=== PATIENT | female | born 1955 | race Caucasian/White ===

== ENCOUNTER 2019-03-20 01:16 | Outpatient (CLI) | payer OTHER, SELFPAY ==
[2019-03-20 08:30] LABS: Anion Gap 8.3 mmol/L (3-11); BUN 11 mg/dL (7-18); CO2 30.7 mmol/L (21.0-32.0); CREATININE 0.72 mg/dL (0.55-1.02); Calcium 9.4 mg/dL (8.5-10.1); Calculated LDL 84; Chloride 105 mmol/L (98-107); Cholesterol 172 mg/dL (50-200); Glucose 80 mg/dL (70-100); HDL Cholesterol 80 mg/dL (40-60); Potassium 4.5 mmol/L (3.5-5.1); Sodium 144 mmol/L (136-145); Triglyceride 43 mg/dL (30-150)
== END 2019-03-20 01:36 ==
PROVIDERS: Nurse Practitioner Family; PCP Nurse Practitioner Adult Health; Visit Provider Nurse Practitioner Adult Health
DX: E78.5 Hyperlipidemia, unspecified (principal); I10 Essential (primary) hypertension
CPT/HCPCS: 36415; 80048; 80061; 83721

== ENCOUNTER 2019-04-11 00:19 | Outpatient (CLI) | payer OTHER, SELFPAY ==
--- NOTE | 2019-04-11 12:00 | DI.MAMMO_ITS ---
SYMPTOM/DIAGNOSIS: SCREENING, Z12.31 MAMMOGRAMS: Mammograms were interpreted according to the usual protocol including computer analysis with CAD system, tomosynthesis and C view imaging. The breast tissue is of moderate radiodensity. There is no evidence of a mass. There are no suspicious calcifications and there has been no significant interval change when compared with prior images. SUMMARY: No evidence of malignancy, category 1. Yearly screening mammography is recommended. Breast density, Category B. SA ASSESSMENT OF FINDINGS: Negative. Category 1. Patient will receive a letter notifying them of these results. BI-RADS category B. There are scattered areas of fibroglandular density.
== END 2019-04-11 00:39 ==
PROVIDERS: PCP Nurse Practitioner Adult Health; Visit Provider Nurse Practitioner Adult Health
DX: Z12.31 Encounter for screening mammogram for malignant neoplasm of breast (principal)
CPT/HCPCS: 77063; 77067

== ENCOUNTER 2020-03-27 01:06 | Outpatient (CLI) | payer BC, SELFPAY ==
[2020-03-27 08:06] LABS: ALT 30 U/L (14-59); AST 23 U/L (15-37); Albumin 4.2 g/dL (3.4-5.0); Alkaline Phosphatase 97 U/L (46-116); Anion Gap 9.5 mmol/L (3-11); BUN 17 mg/dL (7-18); Bilirubin, Total 0.8 mg/dL (0.2-1.0); CO2 28.5 mmol/L (21.0-32.0); CREATININE 0.76 mg/dL (0.55-1.02); Calcium 9.6 mg/dL (8.5-10.1); Calculated LDL 96 mg/dL (<100); Chloride 101 mmol/L (98-107); Cholesterol 184 mg/dL (<200); Glucose 81 mg/dL (74-106); HDL Cholesterol 75 mg/dL (40-60); Potassium 4.2 mmol/L (3.5-5.1); Sodium 139 mmol/L (136-145); Triglyceride 69 mg/dL (<150)
== END 2020-03-27 01:26 ==
PROVIDERS: PCP Nurse Practitioner Adult Health; Visit Provider Nurse Practitioner Adult Health
DX: I10 Essential (primary) hypertension (principal); E78.5 Hyperlipidemia, unspecified
CPT/HCPCS: 36415; 80053; 80061

== ENCOUNTER 2020-04-17 03:39 | Outpatient (CLI) | payer BC, SELFPAY ==
--- NOTE | 2020-04-17 08:49 | DI.MAMMO_ITS ---
EXAM: MAMMO SCREENING CLINICAL HISTORY: screening,Z12.39 TECHNIQUE: Mammograms were interpreted according to the usual protocol including computer analysis w ith CAD system, tomosynthesis and C-view imaging. COMPARISON: 2010 through 2018 FINDINGS: The breasts are composed of scattered fibroglandular densities, Breast Density category B. No suspicious masses or suspicious microcalcifications are seen. No skin thickening or abnormal axillary lymph nodes are seen. There has been no significant change from prior exams. IMPRESSION: BI-RADS Category 1, negative mammogram. Yearly screening mammography is recommended. Breast Density Category B, scattered fibroglandular densities.
== END 2020-04-17 03:59 ==
PROVIDERS: PCP Nurse Practitioner Adult Health; Visit Provider Nurse Practitioner Adult Health
DX: Z12.31 Encounter for screening mammogram for malignant neoplasm of breast (principal)
CPT/HCPCS: 77063; 77067

== ENCOUNTER 2020-05-25 15:45 | Outpatient (CLI) | payer BC, SELFPAY ==
--- NOTE | 2020-05-25 14:15 | DI.RAD_ITS ---
EXAM: XR KNEE RT 4V AP,LAT,SAMIRA,PAT CLINICAL HISTORY: right knee pain. TECHNIQUE: 2D digital imaging was performed. COMPARISON: No exams were available for comparison FINDINGS: There are marked degenerative changes of the right knee. Findings are characterized by joint space n arrowing subchondral sclerosis and periarticular spurring. The findings are most marked in the media l femoral tibial joint and the patellofemoral joint. The tibia is laterally subluxed relative to the distal femur. No acute fracture or dislocation is seen. The soft tissues are unremarkable. IMPRESSION: Marked osteoarthritis of the right knee. DATA REPOSITORY: RADIATION DOSE DELIVERED:
== END 2020-05-25 16:05 ==
PROVIDERS: PCP Nurse Practitioner Adult Health; Referring Provider Nurse Practitioner Adult Health; Visit Provider Physician Assistant
DX: M17.11 Unilateral primary osteoarthritis, right knee (principal)
CPT/HCPCS: 73564

== ENCOUNTER 2021-03-22 14:21 | Outpatient (CLI) | payer BC, SELFPAY ==
--- NOTE | 2021-03-22 14:00 | DI.RAD_ITS ---
Exam(s) XR STANDING ALIGNMENT EXAM: XR STANDING ALIGNMENT CLINICAL HISTORY: TKA planning. TECHNIQUE: 2D digital imaging was performed. COMPARISON: CR XR KNEE RT 4V AP,LAT,SAMIRA,PAT from 05/25/2020 CR XR KNEE RT 4V AP,LAT,SAMIRA,PAT from 05/25/2020 FINDINGS: At the level the knees there is bilateral varus deformity due to advanced narrowing of the medial com partments both knees. [id number]. Lateral compartments exhibit normal height. Hips exhibit only mild degenerative changes. Sacroiliac joints appear unremarkable ankles unremarkable. No osseous le sions. IMPRESSION: DATA REPOSITORY: RADIATION DOSE DELIVERED:
--- NOTE | 2021-03-22 14:32 | DI.RAD_ITS ---
Exam(s) XR KNEE RT 1V EXAM: XR KNEE RT 1V CLINICAL HISTORY: TKA planning. TECHNIQUE: 2D digital imaging was performed. COMPARISON: CR XR KNEE RT 4V AP,LAT,SAMIRA,PAT from 05/25/2020 FINDINGS: Single lateral view reveals advanced osteoarthritic degenerative changes, as previously documented. There also appears to be a joint effusion in the suprapatellar bursa. IMPRESSION: DATA REPOSITORY: RADIATION DOSE DELIVERED:
== END 2021-03-22 14:22 | disposition home or self-care (01) ==
LOC: DIORS 14:22
PROVIDERS: PCP Nurse Practitioner Adult Health; Referring Provider Nurse Practitioner Adult Health; Visit Provider Physician Assistant
DX: Z01.818 Encounter for other preprocedural examination (principal); M17.11 Unilateral primary osteoarthritis, right knee
CPT/HCPCS: 73560; 77073

== ENCOUNTER 2021-04-19 00:52 | Outpatient (CLI) | payer BC, MEDICAID, SELFPAY ==
--- NOTE | 2021-04-19 13:19 | DI.MAMMO_ITS ---
Exam(s) MAMMO SCREENING EXAM: MAMMO SCREENING CLINICAL HISTORY: screening,Z12.39. TECHNIQUE: Bilateral full field digital CC and MLO mammographic images were obtained with 3D tomosyn thesis and utilizing computer aided detection (CAD). COMPARISON: Prior mammograms dating back to 2011, the most recent being March 2020. FINDINGS: There are no new spiculated masses nor malignant appearing microcalcification groups. There is no significant architectural distortion nor skin thickening-retraction. IMPRESSION: No radiographic evidence of malignancy. BI-RADS Category 1 - Negative Breast Density - Category B - Scattered areas of fibroglandular density Breast density Category C or D implies that the patient has dense breast tissue. Dense breast tissue can make it harder to find cancer on a mammogram. Dense breast tissue is also associated with an incr eased risk of breast cancer. This information about the result of the mammogram report was provided to the patient to raise their awareness. Use this report when you speak with the patient about their risks for breast cancer, which includes their family history. At that time, you may recommend additional screening tests (Ultrasoun d or MRI) as these tests may add significant information. A negative radiographic report should not delay biopsy if a dominant or clinically suspicious mass is present. Up to ten percent of cancers are not identified on mammography. A negative report may reinforce clinical impression. Adenosis and dense breasts may obscure an underlying neoplasm. False positive reports average 6 to 10%. Patient will receive a letter notifying them of these results.
== END 2021-04-19 01:12 ==
PROVIDERS: PCP Nurse Practitioner Adult Health; Visit Provider Nurse Practitioner Adult Health
DX: Z12.31 Encounter for screening mammogram for malignant neoplasm of breast (principal); R92.8 Other abnormal and inconclusive findings on diagnostic imaging of breast
CPT/HCPCS: 77063; 77067

== ENCOUNTER 2021-05-03 03:39 | Outpatient (CLI) | payer BC, SELFPAY ==
[2021-05-03 10:26] LABS: HCT 43.5 % (36.0-46.0); HGB 14.4 g/dL (11.2-15.7); MCH 31.9 pg (27.0-33.0); MCHC 33.1 % (32.0-36.0); MCV 96.5 fL (80-95); MPV 8.8 fL (8.0-11.0); Platelet Count 343 10^3/uL (130-400); RBC 4.51 10^6/uL (3.93-5.22); RDW 11.9 % (11.7-14.6); RDW-SD 42.3 fL; WBC 6.09 10^3/uL (4.4-10.8)
[2021-05-03 11:37] LABS: Anion Gap 9.6 mmol/L (3-11); BUN 11 mg/dL (7-18); CO2 27.4 mmol/L (21.0-32.0); CREATININE 0.9 mg/dL (0.55-1.02); Calcium 10.1 mg/dL (8.5-10.1); Chloride 105 mmol/L (98-107); Glucose 88 mg/dL (74-106); Potassium 4.5 mmol/L (3.5-5.1); Sodium 142 mmol/L (136-145)
[2021-05-03 12:48] LABS: Source Nasal/Nares
[2021-05-03 16:48] LABS: COVID-19 PCR Negative (Negative)
== END 2021-05-03 03:40 | disposition home or self-care (01) ==
LOC: LBO 03:39
PROVIDERS: PCP Nurse Practitioner Adult Health; Visit Provider Student in an Organized Health Care Education/Training Program
DX: M25.561 Pain in right knee (principal); M17.11 Unilateral primary osteoarthritis, right knee; Z20.822 Contact with and (suspected) exposure to COVID-19; Z01.818 Encounter for other preprocedural examination; Z01.812 Encounter for preprocedural laboratory examination
CPT/HCPCS: 36415; 80048; 85027; 87635

== ENCOUNTER 2021-05-04 06:08 | Day surgery (SDC) | payer BC, SELFPAY ==
[2021-05-04] VITALS (9 sets, daily range): BP systolic 90–155; BP diastolic 58–79; PULSE 58–80; RESP 12–16; TEMP 36–36.4; O2SAT 92–100; BMI 33.4
[2021-05-04] MEDS: Gabapentin 300 MG CAP PO (06:49)
[2021-05-04] MEDS: Celecoxib 200 MG CAP 400 MG PO (06:49)
[2021-05-04] MEDS: Acetaminophen 500 MG TAB 1000 MG PO (06:49)
[2021-05-04] MEDS: Lactated Ringers 1,000 ML 80 ML IV (06:49)
--- NOTE | 2021-05-04 06:52 | ANES.PREOP_ITS ---
General Info Date of Service Date Performed: 05/04/21 Height: 5 ft Weight: 77.6 kg Body Mass Index (BMI): 33.4 Surgical Procedure: Operation Date: 05/04/21 08:25 Proposed Procedures Side Surgeon p Knee Total Arthroplasty Right Willis Martin MD Meds Allergies and Home Medications Allergies Allergy/AdvReac Type Severity Reaction Status Date / Time Tetracyclines Allergy Intermediate Skin Rash Verified 05/03/21 10:54 Home Medication Medication Instructions Recorded compr.stocking,knee,long,large #2 01/31/18 multivitamin [Multi-Vitamin Daily] 1 ea PO DAILY 03/19/18 glucosamine HCl 500 mg tablet 1,000 mg PO DAILY tab 03/22/21 ibuprofen 200 mg capsule 200 mg PO Q6H PRN 03/22/21 Current Visit Medications: Current Medications Generic Name Dose Route Start Last Admin Trade Name Freq PRN Reason Stop Dose Admin Acetaminophen 1,000 mg 05/04/21 06:00 05/04/21 06:49 Acetaminophen 500 Mg Tab PO 05/04/21 16:00 1,000 mg PREOP SILVINO Administration Celecoxib 400 mg 05/04/21 06:00 05/04/21 06:49 Celecoxib 200 Mg Cap PO 05/04/21 16:00 400 mg PREOP SILVINO Administration Gabapentin 300 mg 05/04/21 06:00 05/04/21 06:49 Gabapentin 300 Mg Cap PO 05/04/21 16:00 300 mg PREOP SILVINO Administration Tranexamic Acid 1,000 mg/ 60 mls @ 360 mls/hr 05/04/21 06:00 Sodium Chloride IVPB 05/04/21 16:00 PREOP SILVINO Tranexamic Acid 1,000 mg/ 60 mls @ 360 mls/hr 05/04/21 06:00 Sodium Chloride IVPB 05/04/21 16:00 DIRECTED SILVINO Ringer's Solution 1,000 mls @ 80 mls/hr 05/04/21 06:00 05/04/21 06:49 IV 06/02/21 23:59 80 mls/hr INFUSION SILVINO Administration Cefazolin Sodium/Dextrose 2 gm in 50 mls @ 100 mls/hr 05/04/21 06:00 Ancef Duplex IVPB 05/04/21 16:00 PREOP SILVINO IV Miscellaneous Supplies 1 each 05/04/21 06:00 Iv Access IV 06/02/21 23:59 DIRECTED SILVINO Sodium Chloride 0 ml 05/04/21 06:00 Normal Saline Flush 10 Ml Syr IV 06/02/21 23:59 PRN PRN Sodium Chloride 0 ml 05/04/21 06:00 Normal Saline 10 Ml Vial IJ 06/02/21 23:59 DIRECTED PRN Sterile Water 0 ml 05/04/21 06:00 Water,Injection,Sterile 10 Ml Vial IJ 06/02/21 23:59 DIRECTED PRN PFSH Active Problems Active Problems: Problem Status Onset Code Impaired gait and mobility R26.89 Degenerative joint disease of right knee M17.11 Body mass index (BMI) greater than 30 in adult Venous insufficiency of both lower extremities 04/20/15 I87.2 Hyperlipidemia 02/21/17 E78.5 Essential hypertension I10 Allergic rhinitis 03/02/15 J30.9 Medical History Medical History Allergic rhinitis (03/02/15) Constipation Had a colonoscopy for this Degenerative joint disease of right knee Severe Depo-Provera contraceptive status Long-term use in the past. Bone density scan normal. Essential hypertension TLCs controlled in the past At-home BP monitoring -03/2015 revealed BPs running in the 110-120s/70-80s whereas in the office it runs in the 130s systolic. Hyperlipidemia (02/21/17) Pt denies this being a diagnosis 02/2019 labwork: 10-year ASCVD risk ~2.9% --> no statin indicated at this time Hypertension Obesity, Class III, BMI 40-49.9 (morbid obesity) Postmenopausal Venous insufficiency Venous insufficiency of both lower extremities (04/20/15) Manifested by edema, treated with compression stockings Stopped wearing compression stockings due to sizing issues Surgical History Surgical History COLONOSCOPY (MAC) (05/25/15) Dr. Debbie Lemon Colonoscopy - MAC 1997- Dr. Morrison Tooth extraction Parker tooth extraction Tobacco Smoking/Tobacco Use Status: Never Passive smoking exposure: No Alcohol Alcohol Intake: never Substance Use Substance use: Never Substance use type: does not use Vital Signs and Lab Results Vital Signs Most Recent Vital Signs in EMR: Most Recent Vital Signs Temp Pulse Resp BP Pulse Ox 36.4 C L 80 16 155/78 H 99 05/04/21 06:25 05/04/21 06:25 05/04/21 06:25 05/04/21 06:25 05/04/21 06:25 Lab Results Blood Type / Crossmatch: 2 No Data to Display Complete Blood Count: White Blood Count 6.09 10^3/uL (4.4-10.8) 05/03/21 10:20 05/03/21 Red Blood Count 4.51 10^6/uL (3.93-5.22) 05/03/21 10:20 05/03/21 Hemoglobin 14.4 g/dL (11.2-15.7) 05/03/21 10:05/03/21 Hematocrit 43.5 % (36.0-46.0) 05/03/21 10:20 05/03/21 Platelet Count 343 10^3/uL (130-400) 05/03/21 10:20 05/03/21 Complete Metabolic Panel: Sodium Level 142 mmol/L (136-145) 05/03/21 10:20 05/03/21 Potassium Level 4.5 mmol/L (3.5-5.1) 05/03/21 10:05/03/21 Chloride Level 105 mmol/L (98-107) 05/03/21 10:05/03/21 Carbon Dioxide Level 27.4 mmol/L (21.0-32.0) 05/03/21 10:20 05/03/21 Blood Urea Nitrogen 11 mg/dL (7-18) 05/03/21 10:05/03/21 Creatinine 0.9 mg/dL (0.55-1.02) 05/03/21 10:05/03/21 Estimated GFR/1.73 m2 >= 60.00 (mL/min/1.73m2) 05/03/21 10:05/03/21 Calcium Level 10.1 mg/dL (8.5-10.1) 05/03/21 10:05/03/21 Glucose Level 88 mg/dL (74-106) 05/03/21 10:05/03/21 Liver Function Panel: No Data to Display Coagulation Panel: No Data to Display Cardiac Panel: No Data to Display Arterial Blood Gas: No Data to Display Venous Blood Gas: No Data to Display Pancreas Panel: No Data to Display Thyroid Panel: No Data to Display Infectious Disease: 2 Coronavirus (COVID-19)(PCR) Negative (Negative) 05/03/21 10:34 05/03/21 Coronavirus 2019 Source Nasal/Nares 05/03/21 10:34 05/03/21 Blood Cultures: No Data to Display Toxicology Panel: No Data to Display Anesthesia Assessment and Plan Anesthesia History Personal History: No History of Anesthesia Complications Family History: No Family History of Anesthesia Complications Exercise Tolerance Exercise Tolerance: Metabolic Equivalents>4 Pertinent Negatives Pertinent Negatives: No Symptoms of GERD, No Major Cardiovascular Symptoms or Complaints and No Major Pulmonary Symptoms or Complaints Cardiac & Pulmonary Exam Cardiac Exam: Normal S1/S2 Heart Sounds Pulmonary Exam: Clear Bilateral Breath Sounds Airway Exam Known Difficult Airway: No Mallampati Class: 2 Mouth Opening: Normal (> 3cm) Thyromental Distance: Greater than 3 cm Neck Range of Motion: Full ROM Neck Circumference: Normal Teeth Condition: Normal Dentition ASA Classification ASA Score: ASA 2 Emergency Case?: No NPO Status NPO Status: NPO Clears >2 hours, Solids >8 hours Anesthesia Plan Resuscitation Status: Full Code Anesthesia Technique: Spinal Anesthesia Airway Planned: Natural Airway Pain Management: Surgeon and patient request nerve block Monitors Used: Standard Monitors
--- NOTE | 2021-05-04 07:25 | DSE_ITS ---
Documented by User: Sammi Odellxon 05/04/21 07:28 DS: Diagnosis Discharge Diagnosis (1) Degenerative joint disease of right knee: Status: Chronic Discharge Plan Disposition Patient Disposition: HOME Condition: Good Discharge Details Reason For Visit: Right knee DJD Attending Provider: Willis Martin Primary Care Provider: Elle Peters Home Meds and New Rx's Prescriptions: New celecoxib [Celebrex] 200 mg capsule 200 mg PO BID Qty: 30 RF: 0 aspirin 81 mg tablet,delayed release (DR/EC) 81 mg PO BID 30 Days Qty: 60 RF: 0 acetaminophen 500 mg tablet 500 mg PO Q6H PRN (Reason: pain) Qty: 60 RF: 2 pantoprazole 40 mg tablet,delayed release (DR/EC) 40 mg PO DAILY Qty: 30 RF: 0 docusate sodium [Colace] 100 mg capsule 100 mg PO BID Qty: 30 RF: 0 gabapentin 300 mg capsule 300 mg PO QHS Qty: 14 RF: 0 oxycodone 5 mg tablet 5 mg PO Q4H PRN (Reason: severe post-operative pain) Qty: 18 RF: 0 Continued glucosamine HCl 500 mg tablet 1,000 mg PO DAILY RF: 0 (DME) compr.stocking,knee,long,large 1 EACH misc Miscellaneous DAILY Qty: 2 RF: 0 multivitamin [Daily Multi-Vitamin] 1 EACH tablet 1 ea PO DAILY RF: 0 Discontinued ibuprofen 200 mg capsule 200 mg PO Q6H PRNRF: 0 Discharge Instructions Additional Instructions: Total Knee Discharge Instructions Activity: The most important activity is to walk. You should try to take short walks a few times a day. It is important that when resting you work on keeping the knee straight. Avoid putting a pillow behind the knee as this will encourage flexion. Work on range of motion exercises as provided by Physical Therapy. - Start outpatient physical therapy within 2 weeks. - You should wear the CRISSY hose on both legs for 2 weeks. You may remove these at night. You may also use any compression sock in place of the CRISSY hose. Dressing: You may remove the Ze wrap on your leg 2 days after your surgery and put on the CRISSY stocking given to you from the hospital. Keep the surgical dressing (underneath the ZE wrap) in place for at least one week. After the first week it may be removed and replaced with light gauze and tape or nothing. The wound and dressing may get wet after 3 days but avoid soaking the dressing o r otherwise it will need to be changed. Many people prefer covering the dressing with cling wrap (saran wrap) to minimize it from getting soaked. If it gets wet, just pat dry. If it starts to peel off then it will need to be changed. Medications: - You should take Tylenol and anti-inflammatory Celebrex as your primary pain control medications. If the Celebrex is too expensive or not covered, please call the office for another alternative (Advil/Ibuprofen or Naproxen/Aleve) - You have been prescribed a stronger pain medication Oxycodone for breakthrough pain, take as needed as prescribed. - You have also been prescribed a stomach acid reduction agent Pantoprozole to help reduce stomach acid and reflux. - You have been prescribed Gabapentin to take at night for restlessness and nerve pain. - You will be taking Aspirin 81mg twice a day for DVT prevention unless instructed otherwise. - If you have constipation you should take Colace (which was prescribed) or Darron alax (which you may purchase [id number]). It takes most people 3-4 days to have a bowel movement. Follow-up: 2 weeks If you have any acute concerns or questions, please do not hesitate to contact the office at [phone]. You may contact Dr. Martin with any questions after hours through the hospital at [phone] or on his cell phone at [phone]. Stand Alone Forms: Anesthesia Discharge Inst. Referrals: Willis Martin MD [ [facility] STAFF PHYSICIAN] - Equipment/Supplies: Walker Activity:: Elevate Remove Dressings/Wound Care:: Do Not Remove Shower/Bathe:: Cover Diet:: As Tolerated Discharge Orders Discharge Orders: Discharge Order (Routine); Ordered 05/04/21 Ordered By: Willis Martin DS: Data Vitals/I&O Vitals and I&O: Vital Signs Temperature 36.4 C L 05/04/21 06:25 Pulse 80 05/04/21 06:25 Pulse Rhythm Regular 05/04/21 06:25 Respiratory Rate 16 05/04/21 06:25 Respiratory Depth Normal 05/04/21 06:25 Blood Pressure 155/78 H 05/04/21 06:25 Pulse Oximetry 99 05/04/21 06:25 Oxygen Delivery Method Room Air 05/04/21 06:25 Oxygen Flow Rate 0 05/04/21 06:25 Pain Level 0 05/04/21 06:25 Intake & Output 05/03/21 05/03/21 05/04/21 11:59 23:59 11:59 Weight 79.832 kg 77.6 kg [facility] Medical History Allergic rhinitis (03/02/15) Constipation Had a colonoscopy for this Degenerative joint disease of right knee Severe Depo-Provera contraceptive status Long-term use in the past. Bone density scan normal. Essential hypertension TLCs controlled in the past At-home BP monitoring -03/2015 revealed BPs running in the 110-120s/70-80s whereas in the office it runs in the 130s systolic. Hyperlipidemia (02/21/17) Pt denies this being a diagnosis 02/2019 labwork: 10-year ASCVD risk ~2.9% --> no statin indicated at this time Hypertension Obesity, Class III, BMI 40-49.9 (morbid obesity) Postmenopausal Venous insufficiency Venous insufficiency of both lower extremities (04/20/15) Manifested by edema, treated with compression stockings Stopped wearing compression stockings due to sizing issues Surgical History COLONOSCOPY (MAC) (05/25/15) Dr. Debbie Lemon Colonoscopy - MAC 1997- Dr. Morrison Tooth extraction [place] tooth extraction Family History Mother Dementia at 91 y/o Father Emphysema of lung at 61 y/o Social History Smoking/Tobacco Use Status: Never Smoking risk assessment performed?: Yes Alcohol Intake: never Drug use: Never Substance use type: does not use Caregiver/Support person: No Household members: spouse Housing: house Communication Needs: Corrective Lenses Do you need help understanding health information?: Never current occupation: Housekeeping Pets and animals: Yes Pets and animals: cat(s) Sexually active: Yes Do you think of yourself as: straight/heterosexual Current gender identity: female What is your relationship status?: How often do you talk on the phone with friends or family?: three or more times per week How often do you get together with friends or relatives?: three or more times per week How often do you attend methodist or baptism services?: 4 or more times per year Do you belong to any clubs or organized social groups?: no Panel score (0-1 are the most socially isolated patients): 3 What type of physical activity do you participate in: walking Duration: 45-60 minutes/day Frequency: 3-4 times per week Aishwarya/Yazidism: Gnosticist Special aishwarya needs: No Seatbelt use: always Helmet use: Yes Helmet use: sometimes Drive intox or ride w/intox class a regional drivers: No Water heater temp set <120 deg: Yes Do you feel safe at home: Yes Do you feel safe in your relationship?: Yes Documented by User: Willis Martin MD 05/04/21 14:05 Date of service: 05/04/21 Time of Service: 14:04 Discharge Plan Disposition Patient Disposition: HOME Condition: Good Discharge Details Reason For Visit: Right knee DJD Attending Provider: Willis Martin Primary Care Provider: Elle Peters Home Meds and New Rx's Prescriptions: New celecoxib [Celebrex] 200 mg capsule 200 mg PO BID Qty: 30 RF: 0 aspirin 81 mg tablet,delayed release (DR/EC) 81 mg PO BID 30 Days Qty: 60 RF: 0 acetaminophen 500 mg tablet 500 mg PO Q6H PRN (Reason: pain) Qty: 60 RF: 2 pantoprazole 40 mg tablet,delayed release (DR/EC) 40 mg PO DAILY Qty: 30 RF: 0 docusate sodium [Colace] 100 mg capsule 100 mg PO BID Qty: 30 RF: 0 gabapentin 300 mg capsule 300 mg PO QHS Qty: 14 RF: 0 oxycodone 5 mg tablet 5 mg PO Q4H PRN (Reason: severe post-operative pain) Qty: 18 RF: 0 Continued glucosamine HCl 500 mg tablet 1,000 mg PO DAILY RF: 0 (DME) compr.stocking,knee,long,large 1 EACH misc Miscellaneous DAILY Qty: 2 RF: 0 multivitamin [Daily Multi-Vitamin] 1 EACH tablet 1 ea PO DAILY RF: 0 Discontinued ibuprofen 200 mg capsule 200 mg PO Q6H PRNRF: 0 Discharge Instructions Additional Instructions: Total Knee Discharge Instructions Activity: The most important activity is to walk. You should try to take short walks a few times a day. It is important that when resting you work on keeping the knee straight. Avoid putting a pillow behind the knee as this will encourage flexion. Work on range of motion exercises as provided by Physical Therapy. - Start outpatient physical therapy within 2 weeks. - You should wear the CRISSY hose on both legs for 2 weeks. You may remove these at night. You may also use any compression sock in place of the CRISSY hose. Dressing: You may remove the Ze wrap on your leg 2 days after your surgery and put on the CRISSY stocking given to you from the hospital. Keep the surgical dressing (underneath the ZE wrap) in place for at least one week. After the first week it may be removed and replaced with light gauze and tape or nothing. The wound and dressing may get wet after 3 days but avoid soaking the dressing or otherwise it will need to be changed. Many people prefer covering the dressing with cling wrap (saran wrap) to minimize it from getting soaked. If it gets wet, just pat dry. If it starts to peel off then it will need to be changed. Medications: - You should take Tylenol and anti-inflammatory Celebrex as your primary pain control medications. If the Celebrex is too expensive or not covered, please call the office for another alternative (Advil/Ibuprofen or Naproxen/Aleve) - You have been prescribed a stronger pain medication Oxycodone for breakthrough pain, take as needed as prescribed. - You have also been prescribed a stomach acid reduction agent Pantoprozole to h elp reduce stomach acid and reflux. - You have been prescribed Gabapentin to take at night for restlessness and nerve pain. - You will be taking Aspirin 81mg twice a day for DVT prevention unless inst ructed otherwise. - If you have constipation you should take Colace (which was prescribed) or Miralax (which you may purchase [id number]). It takes most people 3-4 days to have a bowel movement. Follow-up: 2 weeks If you have any acute concerns or questions, please do not hesitate to contact the office at [phone]. You may contact Dr. Martin with any questions after hours through the hospital at [phone] or on his cell phone at [phone]. Stand Alone Forms: Anesthesia Discharge Inst. Referrals: Willis Martin MD [ [facility] STAFF PHYSICIAN] - Equipment/Supplies: Walker Activity:: Elevate Remove Dressings/Wound Care:: Do Not Remove Shower/Bathe:: Cover Diet:: As Tolerated Discharge Orders Discharge Orders: Discharge Order (Routine); Ordered 05/04/21 Ordered By: Willis Martin DS: Summary Time Spent with Patient providing and/or coordinating discharge services: Less than 30 minutes Status at Discharge Functional status at discharge: uses cane/walker Overall status at discharge: patient is progressing back to baseline Mental Status: mental status grossly normal Speech and Movement: speech and movement normal Mood: congruent mood Affect: normal affect Exam Psych Mental Status: mental status grossly normal Speech and Movement: speech and movement normal Mood: congruent mood Affect: normal affect [facility] Medical History Allergic rhinitis (03/02/15) Constipation Had a colonoscopy for this Degenerative joint disease of right knee Severe Depo-Provera contraceptive status Long-term use in the past. Bone density scan normal. Essential hypertension TLCs controlled in the past At-home BP monitoring -03/2015 revealed BPs running in the 110-120s/70-80s whereas in the office it runs in the 130s systolic. Hyperlipidemia (02/21/17) Pt denies this being a diagnosis 02/2019 labwork: 10-year ASCVD risk ~2.9% --> no statin indicated at this time Hypertension Obesity, Class III, BMI 40-49.9 (morbid obesity) Postmenopausal Venous insufficiency Venous insufficiency of both lower extremities (04/20/15) Manifested by edema, treated with compression stockings Stopped wearing compression stockings due to sizing issues Surgical History COLONOSCOPY (MAC) (05/25/15) Dr. Debbie Lemon Colonoscopy - MAC 1997- Dr. Morrison Tooth extraction [place] tooth extraction Family History Mother Dementia at 91 y/o Father Emphysema of lung at 61 y/o Social History Smoking/Tobacco Use Status: Never Smoking risk assessment performed?: Yes Alcohol Intake: never Drug use: Never Substance use type: does not use Caregiver/Support person: No Household members: spouse Housing: house Communication Needs: Corrective Lenses Do you need help understanding health information?: Never current occupation: Housekeeping Pets and animals: Yes Pets and animals: cat(s) Sexually active: Yes Do you think of yourself as: straight/heterosexual Current gender identity: female What is your relationship status?: How often do you talk on the phone with friends or family?: three or more times per week How often do you get together with friends or relatives?: three or more times per week How often do you attend methodist or baptism services?: 4 or more times per year Do you belong to any clubs or organized social groups?: no Panel score (0-1 are the most socially isolated patients): 3 What type of physical activity do you participate in: walking Duration: 45-60 minutes/day Frequency: 3-4 times per week Aishwarya/Yazidism: Gnosticist Special aishwarya needs: No Seatbelt use: always Helmet use: Yes Helmet use: sometimes Drive intox or ride w/intox class a regional drivers: No Water heater temp set <120 deg: Yes Do you feel safe at home: Yes Do you feel safe in your relationship?: Yes
--- NOTE | 2021-05-04 08:20 | W.ANESNERVE ---
Nerve Block Single Injection Procedure Date and Time Date Performed: 05/04/21 Procedure Start: 07:32 Location Where Procedure Performed Procedure Location: PACU Reason Performed: Postoperative Analgesia Requesting Provider: Willis Martin Timeout Performed Timeout Performed: Yes Monitoring Used ECG, Blood Pressure and SpO2 Sterility Sterility: Hand Hygiene, Surgical Cap, Surgical Mask, Sterile Gloves and Chlorhexidine Sedation Given During Procedure Sedation Given (Indicate Dose Given): Versed IV Dose:: 1mg and Other: Medication/Route/Dose:: N/A Patient Mental Status Patient Mental Status: Awake Nerve Block 1st Nerve Block: Laterality: Right Block Type: Adductor Canal Needle / Catheter Used: 100mm SonoPlex II Local Anesthetic Bolus (Indicate Dose Given): Lidocaine used for local infiltration of skin, Injected in 3-5ml increments after negative blood aspiration and Bupivacaine 0.25% Dose:: 20mL Additives (Indicate Dose Given): None Ultrasound: Sterile probe cover and gel used Ultrasound Image Saved?: Yes Nerve Stimulator: Not Used Paresthesia: None Procedure Tolerated: No Complications and Patient tolerated well Procedure Outcome: Successful Performed By: Elle Gomez Supervised By: Berto Bloom
[2021-05-04] MEDS: Bupivacaine 0.25% Pres-Free 30 ML VIAL (08:38)
[2021-05-04] MEDS: Normal Saline 20 ML VIAL (08:41)
[2021-05-04] MEDS: fentaNYL 100 MCG/2 ML VIAL IVP ×2 (10:26→10:42)
[2021-05-04] MEDS: Normal Saline Flush 10 ML SYR IV (10:27)
--- NOTE | 2021-05-04 10:43 | W.ANESPOSTOP ---
Postoperative Evaluation Date, Time and Location Date Performed: 05/04/21 Time Performed: 10:43 Patient Location: Day Surgery Unit Vital Signs Most Recent Imported Vital Signs: Most Recent Vital Signs Temp Pulse Resp BP Pulse Ox 36.3 C L 58 L 12 128/58 L 98 05/04/21 10:40 05/04/21 10:40 05/04/21 10:40 05/04/21 10:40 05/04/21 10:40 Pain Score Most Recent Pain Score: Most Recent Pain Score Pain Level 0 05/04/21 06:25 Assessment Mental Status: Awake (Alert & Oriented to Patient Baseline) Airway and Respiratory Function: Patent airway with normal (patient baseline) respiratory exam Cardiovascular Function: Hemodynamically Stable Hydration Status: Adequately Hydrated Nausea & Vomiting: No Nausea or Vomiting Pain: Pain is tolerable per patient Peripheral Nerve Block: Regional nerve block not resolved at time of post operative discharge
[2021-05-04] MEDS: oxyCODONE 5 MG TAB PO (11:19)
--- NOTE | 2021-05-04 12:28 | IN_ITS ---
Date of service: 05/04/21 Time of Service: 12:28 PT Notes Visit Reasons: Right knee DJD Physical Therapy Day Surgery Initial Evaluation Date: 05/04/2021 Referring Doctor: CHUN Bergeron PT Orders: PT CONSULT: Status post Ortho surgery Precautions: WBAT on right LE with AD. Patient Profile/Admitting Diagnosis: Alla is a 66-year-old female with direct degenerative joint disease of the right knee and is status post right total knee arthroplasty on postoperative day 0. PMHX: Medical History (Updated 04/27/21 @ 13:24 by Sammi Mckeon) Allergic rhinitis (03/02/15) Constipation Had a colonoscopy for this Degenerative joint disease of right knee Severe Depo-Provera contraceptive status Long-term use in the past. Bone density scan normal. Essential hypertension TLCs controlled in the past At-home BP monitoring -03/2015 revealed BPs running in the 110-120s/70-80s whereas in the office it runs in the 130s systolic. Hyperlipidemia (02/21/17) Pt denies this being a diagnosis 02/2019 labwork: 10-year ASCVD risk ~2.9% --> no statin indicated at this time Hypertension Obesity, Class III, BMI 40-49.9 (morbid obesity) Postmenopausal Venous insufficiency Venous insufficiency of both lower extremities (04/20/15) Manifested by edema, treated with compression stockings Stopped wearing compression stockings due to sizing issues Surgical History COLONOSCOPY (MAC) (05/25/15) Dr. Debbie Lemon Colonoscopy - MAC 1997- Dr. Morrison Tooth extraction [place] tooth extraction Social History/Home Situation: Lives with Kareem in a private home with 4 steps to enter with bilateral rails that are wide apart. 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 Equipment Owned/DME: [employer] Subjective: Complained of being very drowsy as she has not slept at all last night. Nurse Odom thinks that the pain medication she received earlier may be contributory. Patient was able to walk from bed to reclining chair about 15 steps but strongly requested to sit down/rest as she does not feel safe to continue due to fatigue and drowsiness. Nurse Odom rechecked patient's vital signs and blood sugar which were within normal limits. However patient was insistent about taking a short nap. Patient and nurse agreed to be seen about half an hour later to complete mobility assessment. Objective: General Observation: Significant drowsiness and fatigue observed. Hands clammy. YESSICA wraps to right LE. Cryocuff on right knee. Mental Status: Lethargic but is oriented x 4 Pain: 4-5/10 pain in the R knee with weight bearing ROM: Right Lower Extremity: Hip flexion WFL. Hip abduction WFL. Knee flexion 20? to 95?. Knee extension -20?. Ankle dorsiflexion WFL. Ankle plantarflexion WFL. Left Lower Extremity: Hip flexion WFL. Hip abduction WFL. Knee flexion WFL. Ankle dorsiflexion WFL. Ankle plantarflexion WFL. Strength: Right Lower Extremity: Hip flexors 4-/5. Hip abductors 5/5. Knee flexors 3-/5. Knee extensors 3-/5. Ankle dorsiflexors 5/5. Ankle plantarflexors 5/5. Left Lower Extremity:Hip flexors 5/5. Hip abductors 5/5. Knee flexors 5/5. Knee extensors 5/5. Ankle dorsiflexors 5/5. Ankle plantarflexors 5/5. Sensation: Intact as to pain and light pressure in bilateral lower extremities Bed Mobility/Transfers: Supine to sit standby assist Sit to stand contact-guard assist Stand to sit contact-guard assist Bed to chair contact-guard assist Gait: Initially cough heard about 15 steps from bedside to reclining chair and strongly requested to rest for a little bit as she was tired and fatigued. About 20 minutes later patient was seen again and was able to tolerate a distance of 30 feet from bedside chair to the practice steps in the day surgery unit. Step to gait pattern using front wheeled walker with minimal verbal cues provided for safe and correct gait pattern. Contact-guard assist provided Stairs: Up and down 6 x 4 inch steps and 4 x 6 inch steps while holding onto a rail and using a single-point cane with the other hand requiring contact-guard assist with minimal verbal cueing provided for safe technique. Step to gait pattern. No increase in pain reported. No SOB. No LOB. Balance: Static Sitting: Normal Dynamic Sitting: Normal Static Standing: Fair Dynamic Standing: Fair Special Tests: Mobility Limitations Standardized Measure [facility] AM-PAC 6 clicks Basic Mobility Inpatient Short Form: Raw Score: 18 CMS Score: 47% deficit Informed Consent/Education: Patient instructed in purpose of PT consult. Packet containing TKA exercise protocol has been given to patient. Education and training on initial set of exercises as well as on the use of front wheeled walker on level surface and on stairs have been covered with and patient for safe discharge to home. Assessment: Alla requires the use of a front wheeled walker to maximize independence and reduce fall risk at home. She will have assistance and coa fahad of her at home and with exercise performance. Mobility assessment today limited by patient's alertness level and fatigue. Patient presents with clinical signs and symptoms consistent with current/admitting diagnoses that have resulted to mobility limitations, gait instability, generalized weakness, and impairment of motor control as demonstrated by the following impairment level findings: 1. Decreased strength to right knee major muscle groups 2. Impaired standing balance 3. Limitation of joint range of motion in right knee Impairments are contributing to the following functional limitations: 1. Inability to safely ambulate without assistive device 2. Increase completion time for mobility ADL performance 3. Increased fall risk Patient is assessed as a 41282 moderate complexity based on the following: History: 66-year-old female with impairment level findings, functional limitations, and past medical history as indicated above Examination: Demonstrable impairment in strength, balance, and mobility level with underlying impairments and functional limitations as documented above Presentation: Evolving Decision Makin moderate complexity Goals: N/A. PT evaluation and 1-2 treatment sessions only for functional mobility training using recommended AD and for HEP instruction. Plan of Care/Treatment Plan: N/A. PT evaluation and 1-2 treatment session only for functional mobility training using recommended AD and for HEP instruction. DISCHARGE RECOMMENDATIONS: Home when medically cleared by orthopedic surgeon. Outpatient physical therapy services in order to facilitate return to premorbid independent community ambulation without assistive device and to assist with full return to work without restrictions. TREATMENT CODE/TIME: 47625 x 20 minutes, 53833 x 24 minutes beginning at 12:28 PM. Thank you for the opportunity to participate in the care of this patient. Myah Wilder PT, DPT, CLT [facility] [place], [place]
--- NOTE | 2021-05-04 14:19 | W.PM.OP ---
Date of service: 05/04/21 Time of Service: 10:10 Operative Note Operative Note DATE OF PROCEDURE: 05/04/21 PRE-OP DIAGNOSIS: Right Knee Osteoarthritis POST-OP DIAGNOSIS: same PROCEDURE: Right Total Knee Replacement SURGEON: Willis Martin SEMICONDUCTOR DIES LOADER: Sammi Mckeon ANESTHESIA TYPE: Spinal Refer to Anesthesia Record ESTIMATED BLOOD LOSS: 200 PATHOLOGY: none sent TOURNIQUET TIME: 0 COMPLICATIONS: None Patient was transported to: PACU Patient's condition: stable Implants: 1. Depuy Attune Cementless Posterior Stabilized Femoral Component, Size 5 2. Depuy Attune Cementless Rotating Platform Tibial Component, Size 5 3. Depuy Attune 5x8 PS/RP Poly 4. Depuy Attune Patellar Component, Size 35 Indications: I have seen Alla in clinic for symptoms of knee arthritis, confirmed with radiographic findings. Alla has exhausted nonoperative methods and was having significant limitations in daily function and desired better function and less pain. I discussed the technical details of a knee replacement. I explained the risks of the procedure to include, but not limited to, bleeding, infection, pain, stiffness, fracture, damage to nerves and vessels, damage to muscles and tendons, loosening, need for repeat procedure, blood clot and cardiopulmonary demise. Despite these risks, she elected to proceed. Findings: There was significant signs of arthritis throughout the knee. All 3 compartments had deformity, loss of cartilage and large osteophytes. Procedure Description: Alla was greeted in the preoperative holding area where the correct side was identified and marked. The consent was reviewed with the patient and signed. The history and physical was updated. All questions were answered. Preoperative medications were administered: Acetaminophen 1000mg, Celebrex 400mg, and Gabapentin 300mg. An adductor canal block was then administered by the anesthesia team in the PACU. Alla was taken back to the operating room. A spinal anesthestic was then administered. The patient was placed into the supine position on the operating room table. A nonsterile tourniquet was placed high onto the leg but only used for cementing. Posts were placed for positioning during the procedure. All bony prominences were well padded. Prophylactic antibiotics in the form of Cefazolin were administered. 1g of Tranxemic Acid was given intravenously within 30 minutes of incision. The right leg was then prepped with Chloraprep and draped in a standard fashion with impervious stockinette. A second prep with Chloraprep was performed prior to application of Iodine impregnated skin protection. A timeout to confirm correct identity, side and site, procedure, allergies, anesthesia, and medical concerns was performed. With the knee in some flexion, a midline incision was made overlying the knee. Full thickness skin flaps were raised once the extensor mechanism was encountered. These were raised medially and laterally. Any bleeding was controlled with electrocautery. Once the extensor mechanism was fully exposed, a medial parapatellar arthrotomy was performed in a flexed position. All bleeding from the arthrotomy and the geniculate arteries was coagulated. A medial subperiosteal peel was performed with electrocautery to the midcoronal plane. Due to the significant varus deformity the entire medial tibial plateau was exposed. The fat pad was removed while keeping the patellar tendon protected. The anterior distal femur synovium was removed for later visualization. The ACL and PCL were resected and the anterior horn of the lateral meniscus was transected. The knee was then flexed with the patella everted. Large osteophytes from the tibia were removed. Large osteophytes from the femur were removed. Using a step drill, and based on preoperative templating, the femoral canal was entered. This was done with a step drill without any difficulty. The intramedullary distal femoral cut guide was inserted, set to a 5 degree valgus cut and 9mm cut thickness. The distal femoral cut guide was then held in position and pinned. With the soft tissues protected, the distal cut was performed. This was passed over a few times to ensure a planar cut. I then turned attention to the tibia. The extramedullary guide was placed onto the leg. The distal aspect was slid medial to adjust for position of center of ankle and stay in line with shaft of the tibia. Approximately 3-5 degrees of posterior slope was kept in the proximal cutting guide. The center of the guide was aligned with the PCL. The stylus was used to assess cut thickness. The medial side, most involved side, was set for a 1mm cut. This was then held in position and pinned into place with 2 additional pins and a cross pin for stability. The medial and lateral collateral ligaments were protected and the cut was performed. With this completed, it was assessed and noted to be of appropriate dimensions. The guide was removed. A spacer block was inserted and the knee was brought into extension. The 8mm spacer block provided full extension, without hyperextension and with stability of both the medial and lateral collateral ligaments was assessed. The pins from the femur and the tibia were then removed. The distal femur was then sized. The anterior stylus was placed onto the lateral ridge of the anterior femur. This indicated a size 5 femur. The external rotation of the guide was adjusted to 3 degrees to match the epicondylar axis, perpendicular to James?s line. The 4-in-1 cutting guide was the placed. The posterior medial femur cut was evaluated and appeared of good thickness. The spacer block was inserted underneath the cutting guide and stability was confirmed in 90 degrees of flexion. An carol wing was used to confirm appropriate position of the anterior cut to avoid notching. This cutting guide was ensured to be flush on the cut surface and then pinned into place with headed pins. While protecting the soft tissues, quad tendon, and collateral ligaments, the anterior and posterior cuts were performed with a saw. The central two pins were removed and the posterior and anterior chamfers were cut next. The notch-cutting guide was placed. This was pinned to lateralize the femoral component as much as possible while keeping it flush on the cut surface. This was then pinned into position. A reciprocating saw was used to make the notch cut. A rasp smoothed the cut surfaces. The medial and lateral menisci were removed. Large posteiror osteophytes were removed from the posterior femur, mostly medial. A trial femoral component was then inserted, impacted down to the cut surfaces, and the lug holes were drilled. A provisional trial tibial component was placed and the knee was brought through range of motion. There was noted to be excellent extension and flexion. There was no significant instability. The patella was tracking without thumbs. A size 8mm polyethylene component provided the best range of motion and stability with less than 2mm gapping with medial and lateral stress and full extension without significant hyperextension. The tibial cut surface was fully exposed. The tibia was then sized as a 5. The tibia had been previously marked during trialing to correspond to the center of the tibial component to help with rotation. The trial was aligned to this phi, approximately rotated to the medial 1/3rd of the tibial tubercle. The trial was pinned into place. The tibia was prepared with a reamer and a keel punch and lug holes. The knee was then brought into extension and the patella was measured as 21mm. Using the patellar clamp and cut guide, this was resected to a flat surface with at least 13mm of thickness remaining. The size 35 patella fit the best. This was oriented and then clamped into position. The lugs were drilled. The trial components were removed. The final components were opened on the back table. The periosteal and capsular tissues, especially posteriorly, around the knee were then systematically injected with a periarticular cocktail consisting of 50cc 0.25% Marcaine, 30mg Ketorolac, 20cc of Exparal and 50cc of injectable saline. The knee was thoroughly irrigated with a pulse lavage and dried. Irrisept was also used to irrigate the tissues. On the back table, with the implants opened, the cement was mixed. One batch of high viscosity cement was prepared with vacuum assistance. After the cement was ready a small amount was placed on the cut surface of the patella and the patellar button was clamped into position and held. While the cement was hardening, the cementless knee components were placed. Starting with the tibial component, the tibia was subluxed anteriorly and the lug holes of the component were lined up. The tibia was then impacted with an impactor and mallet until the tibial component was in contact with the tibia. Then, the femoral component was inserted. The lug holes were aligned and the component was impacted into position. The knee was irrigated with Irrisept chlorhexadine solution. This was allowed to sit in the knee for 3 minutes. After the cement had finally cured, approximately 15min, the clamp was removed from the patella and the knee was taken through range of motion. The patella was tracking with a no-thumbs technique. The posterior stabilized polyethylene was then inserted. The capsule was then reapproximated with a No. 1 Vicryl at multiple locations. The capsule was finally closed with a No. 2 Stratafix, barbed suture. The second dosing of 1g TXA was started. Deep tissues were then reapproximated with 0 Vicryl and 2-0 Vicryl. The skin was closed with a running 3-0 Monocryl in a subcuticular fashion. This was reinforced with skin glue. A Mepilex silver dressing was applied along with a [id number] YESSICA wrap. A CryoCuff was applied. Alla was transferred to the hospital bed without difficulty an suffering no apparent complication. She has a good prognosis. Physical therapy will start today and without restrictions, weight-bearing as tolerated. Aspirin 81mg BID will be used for DVT prophylaxis.
== END 2021-05-04 14:15 | disposition home or self-care (01) ==
PROVIDERS: PCP Nurse Practitioner Adult Health; Visit Provider Student in an Organized Health Care Education/Training Program
PROC: (CPT 27447; principal; 2021-05-04 08:15)
DX: M17.11 Unilateral primary osteoarthritis, right knee (principal); I10 Essential (primary) hypertension
CPT/HCPCS: 27447; 97162; 97530; J2250; J2370; J2405; J3010

== ENCOUNTER 2021-05-17 15:39 | Outpatient (CLI) | payer BC, SELFPAY ==
--- NOTE | 2021-05-17 15:00 | DI.RAD_ITS ---
Exam(s) XR KNEE RT 1V EXAM: XR KNEE RT 1V CLINICAL HISTORY: 1ST POST OP R TKA. TECHNIQUE: 2D digital imaging was performed. COMPARISON: CR XR KNEE RT 1V from 03/22/2021 FINDINGS: Satisfactory position the components of the recently placed right knee prosthesis evident on this lat eral view. No fracture or loosening evident. IMPRESSION: DATA REPOSITORY: RADIATION DOSE DELIVERED:
--- NOTE | 2021-05-17 15:00 | DI.RAD_ITS ---
Exam(s) XR STANDING ALIGNMENT EXAM: XR STANDING ALIGNMENT CLINICAL HISTORY: 1ST POST OP R TKA. TECHNIQUE: 2D digital imaging was performed. COMPARISON: CR XR STANDING ALIGNMENT from 03/22/2021 FINDINGS: Compared 03/22/2021 there has interval placement of a right knee prosthesis. Appears to be in satisf actory position. Severe advanced degenerative changes in the opposite-left knee are noted with bone- on-bone apposition of the medial compartment and Verus deformity. Ankles appear unremarkable. Hips unremarkable. IMPRESSION: Right knee prosthesis. Advanced degenerative change of the opposite-left knee. DATA REPOSITORY: RADIATION DOSE DELIVERED:
== END 2021-05-17 15:40 | disposition home or self-care (01) ==
LOC: DIORS 15:39
PROVIDERS: PCP Nurse Practitioner Adult Health; Visit Provider Student in an Organized Health Care Education/Training Program
DX: Z96.651 Presence of right artificial knee joint (principal); M17.12 Unilateral primary osteoarthritis, left knee; Z47.1 Aftercare following joint replacement surgery
CPT/HCPCS: 73560; 77073

== ENCOUNTER 2021-06-10 12:02 | Outpatient (REF) | payer BC, SELFPAY ==
--- NOTE | 2021-06-10 10:45 | SKI_PTH ---
PATIENT: Alla Inman LOC: [facility] U#:[id number] AGE/SX: 66/F ROOM: RE06/10/[address]: Sammi Stein : 1955 BED: DIS: 06/10/2021 SPEC #: [id number] RECD: 06/10/21 12:45 STATUS: SUSAN REQ #: [id number] JEFERSON: 06/10/21 10:[address]: Sammi Stein DEPT: Surgical Specimen RECD BY: Ladi Rios ENTERED: 06/10/21 12:45 SP TYPE: SAVANNAH RIZZO DR: Elle Peters APRN Tissues: 1 - SKIN BIOPSY(SHAVE/PUNCH) Procedures: SKIN LEVEL 4 Comments: [id number]
== END 2021-06-10 12:03 | disposition home or self-care (01) ==
LOC: LBN 12:02
PROVIDERS: PCP Nurse Practitioner Adult Health; Referring Provider Surgery; Visit Provider Surgery
DX: L82.1 Other seborrheic keratosis (principal); L98.9 Disorder of the skin and subcutaneous tissue, unspecified
CPT/HCPCS: 88305

== ENCOUNTER 2021-07-28 15:01 | Outpatient (CLI) | payer BC, SELFPAY ==
--- NOTE | 2021-07-28 13:45 | DI.RAD_ITS ---
Exam(s) XR KNEE LT 2V AP,LAT EXAM: XR KNEE LT 2V AP,LAT CLINICAL HISTORY: preoperative. TECHNIQUE: 2D digital imaging was performed. COMPARISON: CR XR KNEE RT 1V from 05/17/2021 FINDINGS: There is severe gavi-ls-[id number] narrowing of the medial compartment and prominent marginal osteophytes. Mild narrowing of the lateral compartment. Also advanced degenerative changes in the patellofemoral compartment Calcifications are noted posteriorly which are probably loose bodies in a possible Lucas cyst. There does not appear to be a large joint effusion. No ominous osseous lesions. IMPRESSION: Advanced osteoarthritic degenerative changes as discussed above in the left knee. This patient has a prosthesis in the opposite-right knee. DATA REPOSITORY: RADIATION DOSE DELIVERED:
== END 2021-07-28 15:02 | disposition home or self-care (01) ==
LOC: DIORS 15:02
PROVIDERS: PCP Nurse Practitioner Adult Health; Referring Provider Nurse Practitioner Adult Health; Visit Provider Physician Assistant Surgical
DX: M25.562 Pain in left knee (principal); M17.12 Unilateral primary osteoarthritis, left knee; Z96.651 Presence of right artificial knee joint
CPT/HCPCS: 73560

== ENCOUNTER 2021-08-02 04:01 | Outpatient (CLI) | payer BC, SELFPAY ==
[2021-08-02 09:17] LABS: HCT 42.6 % (36.0-46.0); HGB 13.7 g/dL (11.2-15.7); MCH 31.9 pg (27.0-33.0); MCHC 32.2 % (32.0-36.0); MCV 99.1 fL (80-95); MPV 8.8 fL (8.0-11.0); Platelet Count 336 10^3/uL (130-400); RDW 11.8 % (11.7-14.6); RDW-SD 42.8 fL; WBC 4.96 10^3/uL (4.4-10.8)
[2021-08-02 10:26] LABS: Anion Gap 8.4 mmol/L (3-11); BUN 11 mg/dL (7-18); CO2 30.6 mmol/L (21.0-32.0); CREATININE 0.7 mg/dL (0.55-1.02); Calcium 9.5 mg/dL (8.5-10.1); Chloride 102 mmol/L (98-107); Glucose 86 mg/dL (74-106); Potassium 4.3 mmol/L (3.5-5.1); Sodium 141 mmol/L (136-145)
[2021-08-02 11:41] LABS: Source Nasal/Nares
[2021-08-02 15:51] LABS: COVID-19 PCR Negative (Negative)
== END 2021-08-02 04:02 | disposition home or self-care (01) ==
LOC: LBO 04:01
PROVIDERS: PCP Nurse Practitioner Adult Health; Visit Provider Student in an Organized Health Care Education/Training Program
DX: Z20.822 Contact with and (suspected) exposure to COVID-19 (principal); Z01.818 Encounter for other preprocedural examination; M17.12 Unilateral primary osteoarthritis, left knee
CPT/HCPCS: 36415; 80048; 85027; 87635

== ENCOUNTER 2021-08-04 05:56 | Day surgery (SDC) | payer BC, SELFPAY ==
[2021-08-04] VITALS (12 sets, daily range): BP systolic 104–143; BP diastolic 52–74; PULSE 72–89; RESP 10–22; TEMP 36–36.6; O2SAT 96–99; BMI 33.0
[2021-08-04] MEDS: Celecoxib 200 MG CAP 400 MG PO (06:19)
[2021-08-04] MEDS: Gabapentin 300 MG CAP PO (06:20)
[2021-08-04] MEDS: Lactated Ringers 1,000 ML 80 ML IV (06:20)
[2021-08-04] MEDS: Acetaminophen 500 MG TAB 1000 MG PO (06:20)
--- NOTE | 2021-08-04 06:36 | W.PM.DSUDISC ---
Documented by User: CHUN Jimenez 08/04/21 06:40 Discharge Plan Disposition Patient Disposition: HOME Condition: Stable Discharge Details Reason For Visit: Left TKA Attending Provider: Willis Martin Primary Care Provider: Elle Peters Home Meds and New Rx's Prescriptions: New aspirin 81 mg tablet,delayed release (DR/EC) 81 mg PO BID Qty: 60 RF: 0 celecoxib [Celebrex] 200 mg capsule 200 mg PO BID Qty: 60 RF: 0 acetaminophen [Tylenol Extra Strength] 500 mg tablet 1,000 mg PO Q8H PRN PRNQty: 90 RF: 0 pantoprazole [Protonix] 40 mg tablet,delayed release (DR/EC) 40 mg PO DAILY Qty: 30 RF: 0 gabapentin 300 mg capsule 300 mg PO QHS Qty: 14 RF: 0 Continued (DME) compr.stocking,knee,long,large 1 EACH misc Miscellaneous DAILY Qty: 2 RF: 0 multivitamin [Daily Multi-Vitamin] 1 EACH tablet 1 ea PO DAILY RF: 0 Discharge Instructions Additional Instructions: Total Knee Discharge Instructions Activity: The most important activity is to walk. You should try to take short walks a few times a day. It is important that when resting you work on keeping the knee straight. Avoid putting a pillow behind the knee as this will encourage flexion. Work on range of motion exercises as provided by Physical Therapy. - Start outpatient physical therapy around 2 weeks. - You should wear the CRISSY hose on both legs for 2 weeks. You may remove these at night. You may also use any compression sock in place of the CRISSY hose. - Utilize [employer] to review exercises, see videos on exercises and obtain basic information pertaining to your surgery and your recovery. Dressing: Remove the Ze wrap by 2 days after your surgery and put on the CRISSY stocking given to you from the hospital. Keep the surgical dressing (underneath the ZE wrap) in place for at least one week. After the first week it may be removed and replaced with light gauze and tape or nothing. The wound and dressing may get wet after 3 days but avoid soaking the dressing or otherwise it will need to be changed. Many people prefer covering the dressing with cling wrap (saran wrap) to minimize it from getting soaked. If it gets wet, just pat dry. If it starts to peel off then it will need to be changed. Medications: - You should take Tylenol and anti-inflammatory Celebrex as your primary pain control medications. If the Celebrex is too expensive or not covered, please call the office for another alternative (Advil/Ibuprofen or Naproxen/Aleve) - Use your previously prescribed, stronger pain medication Oxycodone for breakthrough pain, take as needed as prescribed. - You have also been prescribed a stomach acid reduction agent Pantoprozole to help reduce stomach acid and reflux. - You have been prescribed Gabapentin to take at night for restlessness and nerve pain. - You will be taking Aspirin 81mg twice a day for DVT prevention unless instructed otherwise. - If you have constipation you should take Colace or Miralax (both [id number]). It takes most people 3-4 days to have a bowel movement. Follow-up: 2 weeks If you have any acute concerns or questions, please do not hesitate to contact the office at [phone]. You may contact Dr. Martin with any questions after hours through the hospital at [phone] or on his cell phone at [phone]. Stand Alone Forms: Anesthesia Discharge Inst., Anes.Nerve Block Instructions, Lisandro Luo ([facility]) Referrals: Willis Martin MD [ [facility] STAFF PHYSICIAN] - Equipment/Supplies: Walker Activity:: Activity as Tolerated Remove Dressings/Wound Care:: Do Not Remove Shower/Bathe:: 72 hours Diet:: As Tolerated Discharge Orders Discharge Orders: Discharge Order (Routine); Ordered 08/04/21 Ordered By: Alana Dubon DS: Diagnosis Discharge Diagnosis (1) Primary osteoarthritis of left knee: Status: Acute Documented by User: Willis Martin MD 08/04/21 11:49 Discharge Plan Disposition Patient Disposition: HOME Condition: Stable Discharge Details Reason For Visit: Left TKA Attending Provider: Willis Martin Primary Care Provider: Elle Peters Home Meds and New Rx's Prescriptions: New aspirin 81 mg tablet,delayed release (DR/EC) 81 mg PO BID Qty: 60 RF: 0 celecoxib [Celebrex] 200 mg capsule 200 mg PO BID Qty: 60 RF: 0 acetaminophen [Tylenol Extra Strength] 500 mg tablet 1,000 mg PO Q8H PRN PRNQty: 90 RF: 0 pantoprazole [Protonix] 40 mg tablet,delayed release (DR/EC) 40 mg PO DAILY Qty: 30 RF: 0 gabapentin 300 mg capsule 300 mg PO QHS Qty: 14 RF: 0 Continued (DME) compr.stocking,knee,long,large 1 EACH misc Miscellaneous DAILY Qty: 2 RF: 0 multivitamin [Daily Multi-Vitamin] 1 EACH tablet 1 ea PO DAILY RF: 0 Discharge Instructions Additional Instructions: Total Knee Discharge Instructions Activity: The most important activity is to walk. You should try to take short walks a few times a day. It is important that when resting you work on keeping the knee straight. Avoid putting a pillow behind the knee as this will encourage flexion. Work on range of motion exercises as provided by Physical Therapy. - Start outpatient physical therapy around 2 weeks. - You should wear the CRISSY hose on both legs for 2 weeks. You may remove these at night. You may also use any compression sock in place of the CRISSY hose. - Utilize [employer] to review exercises, see videos on exercises and obtain basic information pertaining to your surgery and your recovery. Dressing: Remove the Ze wrap by 2 days after your surgery and put on the CRISSY stocking given to you from the hospital. Keep the surgical dressing (underneath the ZE wrap) in place for at least one week. After the first week it may be removed and replaced with light gauze and tape or nothing. The wound and dressing may get wet after 3 days but avoid soaking the dressing or otherwise it will need to be changed. Many people prefer covering the dressing with cling wrap (saran wrap) to minimize it from getting soaked. If it gets wet, just pat dry. If it starts to peel off then it will need to be changed. Medications: - You should take Tylenol and anti-inflammatory Celebrex as your primary pain control medications. If the Celebrex is too expensive or not covered, please call the office for another alternative (Advil/Ibuprofen or Naproxen/Aleve) - Use your previously prescribed, stronger pain medication Oxycodone for breakthrough pain, take as needed as prescribed. - You have also been prescribed a stomach acid reduction agent Pantoprozole to help reduce stomach acid and reflux. - You have been prescribed Gabapentin to take at night for restlessness and nerve pain. - You will be taking Aspirin 81mg twice a day for DVT prevention unless instructed otherwise. - If you have constipation you should take Colace or Miralax (both [id number]). It takes most people 3-4 days to have a bowel movement. Follow-up: 2 weeks If you have any acute concerns or questions, please do not hesitate to contact the office at [phone]. You may contact Dr. Martin with any questions after hours through the hospital at [phone] or on his cell phone at [phone]. Stand Alone Forms: Anesthesia Discharge Inst., Anes.Nerve Block Instructions, Lisandro Luo ([facility]) Referrals: Willis Martin MD [ [facility] STAFF PHYSICIAN] - Equipment/Supplies: Walker Activity:: Activity as Tolerated Remove Dressings/Wound Care:: Do Not Remove Shower/Bathe:: 72 hours Diet:: As Tolerated Discharge Orders Discharge Orders: Discharge Order (Routine); Ordered 08/04/21 Ordered By: Alana Dubon
--- NOTE | 2021-08-04 06:44 | W.ANESPRE ---
General Info Date of Service Date Performed: 08/04/21 Height: 5 ft Weight: 76.8 kg Body Mass Index (BMI): 33.0 Surgical Procedure: Operation Date: 08/04/21 07:40 Proposed Procedures Side Surgeon p Knee Total Arthroplasty Left Willis Martin MD Meds Allergies and Home Medications Allergies Allergy/AdvReac Type Severity Reaction Status Date / Time Tetracyclines Allergy Intermediate Skin Rash Verified 08/04/21 06:03 Home Medication Medication Instructions Recorded compr.stocking,knee,long,large #2 01/31/18 multivitamin [Daily Multi-Vitamin] 1 ea PO DAILY 03/19/18 acetaminophen [Tylenol Extra 1,000 mg PO Q8H PRN PRN #90 tab 08/04/21 Strength] aspirin 81 mg PO BID #60 tab 08/04/21 celecoxib [Celebrex] 200 mg PO BID #60 cap 08/04/21 gabapentin 300 mg PO QHS #14 cap 08/04/21 pantoprazole [Protonix] 40 mg PO DAILY #30 tab 08/04/21 Current Visit Medications: Current Medications Generic Name Dose Route Start Last Admin Trade Name Freq PRN Reason Stop Dose Admin Acetaminophen 1,000 mg 08/04/21 06:00 08/04/21 06:20 Acetaminophen 500 Mg Tab PO 08/04/21 16:00 1,000 mg PREOP SILVINO Administration Acetaminophen 1,000 mg 08/04/21 09:00 Acetaminophen 500 Mg Tab PO TID SILVINO Aspirin 81 mg 08/04/21 09:00 Aspirin E.C. 81 Mg Tabec PO BID SILVINO Celecoxib 400 mg 08/04/21 06:00 08/04/21 06:19 Celecoxib 200 Mg Cap PO 08/04/21 16:00 400 mg PREOP SILVINO Administration Celecoxib 200 mg 08/04/21 09:00 Celecoxib 200 Mg Cap PO BID SILVINO Docusate Sodium 100 mg 08/04/21 06:33 Docusate Sodium 100 Mg Cap PO BID PRN PRN Constipation Gabapentin 300 mg 08/04/21 06:00 08/04/21 06:20 Gabapentin 300 Mg Cap PO 08/04/21 16:00 300 mg PREOP SILVINO Administration Gabapentin 300 mg 08/04/21 22:00 Gabapentin 300 Mg Cap PO HS SILVINO Hydromorphone HCl 0.5 mg 08/04/21 06:33 Hydromorphone 2 Mg/Ml Vial IVP Q2H PRN PRN Tranexamic Acid 1,000 mg/ 60 mls @ 360 mls/hr 08/04/21 06:00 Sodium Chloride IVPB 08/04/21 16:00 PREOP SILVINO Ringer's Solution 1,000 mls @ 80 mls/hr 08/04/21 06:00 08/04/21 06:20 IV 08/24/21 23:59 80 mls/hr INFUSION SILVINO Administration Cefazolin Sodium 2,000 mg/ 100 mls @ 200 mls/hr 08/04/21 06:00 Sodium Chloride IVPB 08/04/21 16:00 PREOP SILVINO Cefazolin Sodium/Dextrose 1 gm in 50 mls @ 100 mls/hr 08/04/21 15:00 Ancef Duplex IVPB 08/05/21 07:29 Q8H SILVINO IV Miscellaneous Supplies 1 each 08/04/21 06:00 Iv Access IV 08/24/21 23:59 DIRECTED SILVINO Ondansetron HCl 4 mg 08/04/21 06:33 Ondansetron 4 Mg/2 Ml Vial IVP Q6H PRN PRN Nausea Oxycodone HCl 0 mg 08/04/21 06:33 Oxycodone 5 Mg Tab PO Q3H PRN PRN Pain Pantoprazole Sodium 40 mg 08/04/21 08:00 Pantoprazole 40 Mg Tabcr PO DAILY@0730 SILVINO Sodium Chloride 0 ml 08/04/21 06:00 Normal Saline Flush 10 Ml Syr IV 08/24/21 23:59 PRN PRN Sodium Chloride 0 ml 08/04/21 06:00 Normal Saline 10 Ml Vial IJ 08/24/21 23:59 DIRECTED PRN Sterile Water 0 ml 08/04/21 06:00 Water,Injection,Sterile 10 Ml Vial IJ 08/24/21 23:59 DIRECTED PRN PFSH Active Problems Active Problems: Problem Status Onset Code Actinic keratitis H16.139 Primary osteoarthritis of left knee M17.12 Soft tissue lesion M79.9 History of total right knee replacement Z96.651 Impaired gait and mobility R26.89 Body mass index (BMI) greater than 30 in adult Venous insufficiency of both lower extremities 04/20/15 I87.2 Hyperlipidemia 02/21/17 E78. 5 Essential hypertension I10 Allergic rhinitis 03/02/15 J30.9 Medical History Medical History Allergic rhinitis (03/02/15) Constipation Had a colonoscopy for this Degenerative joint disease of right knee Severe Depo-Provera contraceptive status Long-term use in the past. Bone density scan normal. Essential hypertension TLCs controlled in the past At-home BP monitoring -03/2015 revealed BPs running in the 110-120s/70-80s whereas in the office it runs in the 130s systolic. Hyperlipidemia (02/21/17) Pt denies this being a diagnosis 02/2019 labwork: 10-year ASCVD risk ~2.9% --> no statin indicated at this time Hypertension Obesity, Class III, BMI 40-49.9 (morbid obesity) Postmenopausal Venous insufficiency Venous insufficiency of both lower extremities (04/20/15) Manifested by edema, treated with compression stockings Stopped wearing compression stockings due to sizing issues Surgical History Surgical History COLONOSCOPY (MAC) (05/25/15) Dr. Debbie Lemon Colonoscopy - MAC 1997- Dr. Morrison History of total right knee replacement DOS: 05/04/21 Tooth extraction [place] tooth extraction Tobacco Smoking/Tobacco Use Status: Never Passive smoking exposure: No Alcohol Alcohol Intake: never Substance Use Substance use: Never Substance use type: does not use Vital Signs and Lab Results Vital Signs Most Recent Vital Signs in EMR: Most Recent Vital Signs Temp Pulse Resp BP Pulse Ox 36.1 C L 76 18 143/74 H 99 08/04/21 06:00 08/04/21 06:00 08/04/21 06:00 08/04/21 06:00 08/04/21 06:00 Lab Results Blood Type / Crossmatch: No Data to Display Complete Blood Count: White Blood Count 4.96 10^3/uL (4.4-10.8) 08/02/21 09:13 08/02/21 Red Blood Count 4.30 10^6/uL (3.93-5.22) 08/02/21 09:13 08/02/21 Hemoglobin 13.7 g/dL (11.2-15.7) 08/02/21 09:13 08/02/21 Hematocrit 42.6 % (36.0-46.0) 08/02/21 09:13 08/02/21 Platelet Count 336 10^3/uL (130-400) 08/02/21 09:13 08/02/21 Complete Metabolic Panel: Sodium Level 141 mmol/L (136-145) 08/02/21 09:13 08/02/21 Potassium Level 4.3 mmol/L (3.5-5.1) 08/02/21 09:13 08/02/21 Chloride Level 102 mmol/L (98-107) 08/02/21 09:13 08/02/21 Carbon Dioxide Level 30.6 mmol/L (21.0-32.0) 08/02/21 09:13 08/02/21 Blood Urea Nitrogen 11 mg/dL (7-18) 08/02/21 09:13 08/02/21 Creatinine 0.7 mg/dL (0.55-1.02) 08/02/21 09:13 08/02/21 Estimated GFR/1.73 m2 >= 60.00 (mL/min/1.73m2) 08/02/21 09:13 08/02/21 Calcium Level 9.5 mg/dL (8.5-10.1) 08/02/21 09:13 08/02/21 Glucose Level 86 mg/dL (74-106) 08/02/21 09:13 08/02/21 Liver Function Panel: No Data to Display Coagulation Panel: No Data to Display Cardiac Panel: No Data to Display Arterial Blood Gas: No Data to Display Venous Blood Gas: No Data to Display Pancreas Panel: No Data to Display Thyroid Panel: No Data to Display Infectious Disease: Coronavirus (COVID-19)(PCR) Negative (Negative) 08/02/21 10:00 08/02/21 Coronavirus 2019 Source Nasal/Nares 08/02/21 10:00 08/02/21 Blood Cultures: No Data to Display Toxicology Panel: No Data to Display Anesthesia Assessment and Plan Anesthesia History Personal History: No History of Anesthesia Complications Family History: No Family History of Anesthesia Complications Exercise Tolerance Exercise Tolerance: Metabolic Equivalents>4 Pertinent Negatives Pertinent Negatives: No Symptoms of GERD, No Major Cardiovascular Symptoms or Complaints, No Major Pulmonary Symptoms or Complaints and No History of CVA/TIA Cardiac & Pulmonary Exam Cardiac Exam: Normal S1/S2 Heart Sounds Pulmonary Exam: Clear Bilateral Breath Sounds Implantable Cardiac Device Does patient have a Pacemaker or an ICD?: No Airway Exam Known Difficult Airway: No Mallampati Class: 2 Mouth Opening: Normal (> 3cm) Thyromental Distance: Greater than 3 cm Neck Range of Motion: Full ROM Neck Circumference: Normal Teeth Condition: Normal Dentition ASA Classification ASA Score: ASA 2 Emergency Case?: No NPO Status NPO Status: NPO Clears >2 hours, Solids >8 hours Anesthesia Plan Resuscitation Status: Full Code Anesthesia Technique: Spinal Anesthesia Airway Planned: Natural Airway Monitors Used: Standard Monitors
--- NOTE | 2021-08-04 07:15 | W.ANESNERVE ---
Nerve Block Single Injection Procedure Date and Time Date Performed: 08/04/21 Procedure Start: 07:04 Location Where Procedure Performed Procedure Location: Day Surgery Unit Reason Performed: Postoperative Analgesia Requesting Provider: Willis Martin Timeout Performed Timeout Performed: Yes Monitoring Used ECG, Blood Pressure and SpO2 Sterility Sterility: Hand Hygiene, Surgical Mask, Sterile Gloves and Chlorhexidine Sedation Given During Procedure Sedation Given (Indicate Dose Given): Versed IV Dose:: 2 mg Patient Mental Status Patient Mental Status: Sedate with meaningful communication Nerve Block 1st Nerve Block: Laterality: Left Block Type: Adductor Canal Needle / Catheter Used: 100mm SonoPlex II Local Anesthetic Bolus (Indicate Dose Given): Lidocaine used for local infiltration of skin, Injected in 3-5ml increments after negative blood aspiration and Bupivacaine 0.25% Dose:: 15 mL Additives (Indicate Dose Given): None Ultrasound: Sterile probe cover and gel used Ultrasound Image Saved?: Yes Nerve Stimulator: Not Used Paresthesia: None Procedure Tolerated: No Complications and Patient tolerated well Procedure Outcome: Successful Performed By: Jojo Bradley Supervised By: Paula Cano
[2021-08-04] MEDS: ceFAZolin 2,000 MG in Normal Saline 100 ML 200 MG IVPB (07:28)
[2021-08-04] MEDS: Ketorolac 30 MG/ML VIAL (08:41)
[2021-08-04] MEDS: Normal Saline 20 ML VIAL (08:41)
[2021-08-04] MEDS: Bupivacaine 0.25% Pres-Free 30 ML VIAL (08:41)
[2021-08-04] MEDS: fentaNYL 100 MCG/2 ML VIAL IVP ×2 (09:48→10:10)
--- NOTE | 2021-08-04 10:27 | W.ANESPOSTOP ---
Postoperative Evaluation Date, Time and Location Date Performed: 08/04/21 Time Performed: : Patient Location: PACU Vital Signs Most Recent Imported Vital Signs: Most Recent Vital Signs Temp Pulse Resp BP Pulse Ox 36.3 C L 80 12 122/59 L 99 08/04/21 10:11 08/04/21 10:11 08/04/21 10:11 08/04/21 10:11 08/04/21 10:11 Pain Score Most Recent Pain Score: Most Recent Pain Score Pain Level 5 08/04/21 10:11 Assessment Mental Status: Awake (Alert & Oriented to Patient Baseline) Airway and Respiratory Function: Patent airway with normal (patient baseline) respiratory exam Cardiovascular Function: Hemodynamically Stable Hydration Status: Adequately Hydrated Nausea & Vomiting: No Nausea or Vomiting Pain: Pain is tolerable per patient Peripheral Nerve Block: Regional nerve block not resolved at time of post operative discharge
[2021-08-04] MEDS: oxyCODONE 5 MG TAB PO (11:40)
--- NOTE | 2021-08-04 12:25 | IN_ITS ---
Date of service: 08/04/21 Time of Service: 12:25 PT Notes Visit Reasons: Left TKA Physical Therapy Day Surgery Initial Evaluation Date: 08/04/2021 Referring Doctor: CHUN Castro PT Orders: PT CONSULT: Status post Ortho surgery Precautions: WBAT on L LE with AD. Patient Profile/Admitting Diagnosis: Alla is a 66-year-old female with degenerative joint disease of the left knee and is status post left total knee arthroplasty on postoperative day 0. PMHX: Medical History (Updated 06/14/21 @ 14:35 by CHUN Nelson) Allergic rhinitis (03/02/15) Constipation Had a colonoscopy for this Degenerative joint disease of right knee Severe Depo-Provera contraceptive status Long-term use in the past. Bone density scan normal. Essential hypertension TLCs controlled in the past At-home BP monitoring -03/2015 revealed BPs running in the 110-120s/70-80s whereas in the office it runs in the 130s systolic. Hyperlipidemia (02/21/17) Pt denies this being a diagnosis 02/2019 labwork: 10-year ASCVD risk ~2.9% --> no statin indicated at this time Hypertension Obesity, Class III, BMI 40-49.9 (morbid obesity) Postmenopausal Venous insufficiency Venous insufficiency of both lower extremities (04/20/15) Manifested by edema, treated with compression stockings Stopped wearing compression stockings due to sizing issues Surgical History COLONOSCOPY (MAC) (05/25/15) Dr. Debbie Lemon Colonoscopy - MAC 1997- Dr. Morrison History of total right knee replacement DOS: 05/04/21 Tooth extraction [place] tooth extraction Social History/Home Situation: Lives with Jeffrey in a private home with 4 steps to enter with bilateral rails that are wide apart. 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 Equipment Owned/DME: [employer], [employer] Subjective: Feels that this surgery is a lot better than the first as she does not have any issues of fatigue and sleepiness as she did with her R TKA. Objective: General Observation: YESSICA wraps to left LE. Cryocuff on left knee. Mental Status: Oriented x 4 Pain: 2-3/10 pain in the R knee with weight bearing ROM: Right Lower Extremity: Hip flexion WFL. Hip abduction WFL. Knee flexion WFL. Knee extension WFL. Ankle dorsiflexion WFL. Ankle plantarflexion WFL. Left Lower Extremity: Hip flexion WFL. Hip abduction WFL. Knee flexion 10 degrees to 100 degrees with pain at end of range. Knee extesnion -10 degrees. Ankle dorsiflexion WFL. Ankle plantarflexion WFL. Strength: Right Lower Extremity: Hip flexors 4-/5. Hip abductors 5/5. Knee flexors 3-/5. K nee extensors 3-/5. Ankle dorsiflexors 5/5. Ankle plantarflexors 5/5. Left Lower Extremity:Hip flexors 5/5. Hip abductors 5/5. Knee flexors 5/5. Knee extensors 5/5. Ankle dorsiflexors 5/5. Ankle plantarflexors 5/5. Sensation: Intact as to pain and light pressure in bilateral lower extremities. Bed Mobility/Transfers: Supine to sit standby assist Sit to stand standby assist Stand to sit standby assist Bed to chair standby assist Gait: 100 feet with FWW and stand by assist. Step through gait pattern. No LOB. Good quad activation in the L. Stairs: Up and down 6 x 4 inch steps and 4 x 6 inch steps while holding onto a rail and using a single-point cane with the other hand requiring contact-guard assist with minimal verbal cueing provided for safe technique. Step to gait pattern. No increase in pain reported. No SOB. No LOB. Balance: Static Sitting: Normal Dynamic Sitting: Normal Static Standing: Fair Dynamic Standing: Fair Special Tests: Mobility Limitations Standardized Measure [facility] 6 clicks Basic Mobility Inpatient Short Form: Raw Score: 21 CMS Score: 21% deficit Informed Consent/Education: Patient instructed in purpose of PT consult. Packet containing TKA exercise protocol has been given to patient. Education and training on initial set of exercises as well as on the use of front wheeled walker on level surface and on stairs have been covered with and patient for safe discharge to home. Assessment: Alla requires the use of a front wheeled walker to maximize independence and reduce fall risk at home. She will have assistance and coaching of her at home and with exercise performance. Patient presents with clinical signs and symptoms consistent with current/admitting diagnoses that have resulted to mobility limitations, gait instability, generalized weakness, and impairment of motor control as demonstrated by the following impairment level findings: 1. Decreased strength to left knee major muscle groups 2. Impaired standing balance 3. Limitation of joint range of motion in left knee Impairments are contributing to the following functional limitations: 1. Inability to safely ambulate without assistive device 2. Increase completion time for mobility ADL performance 3. Increased fall risk Patient is assessed as a [id number] moderate complexity based on the following: History: 66-year-old female with impairment level findings, functional limitations, and past medical history as indicated above Examination: Demonstrable impairment in strength, balance, and mobility level with underlying impairments and functional limitations as documented above Presentation: Evolving Decision Makin moderate complexity Goals: N/A. PT evaluation and 1-2 treatment sessions only for functional mobility training using recommended AD and for HEP instruction. Plan of Care/Treatment Plan: N/A. PT evaluation and 1-2 treatment session only for functional mobility training using recommended AD and for HEP instruction. DISCHARGE RECOMMENDATIONS: Home when medically cleared by orthopedic surgeon. Outpatient physical therapy services in order to facilitate return to premorbid independent community ambulation without assistive device and to assist with full return to work without restrictions. TREATMENT CODE/TIME: 30586 x 20 minutes, 38431 x 25 minutes beginning at 12:25 PM. Thank you for the opportunity to participate in the care of this patient. Myah Wilder PT, DPT, CLT [facility] [place], [place]
--- NOTE | 2021-08-04 21:18 | ROE_ITS ---
Date of service: 08/04/21 Time of Service: 09:18 Operative Note Operative Note DATE OF PROCEDURE: 08/04/21 PRE-OP DIAGNOSIS: Left Knee Osteoarthritis POST-OP DIAGNOSIS: same PROCEDURE: Left Total Knee Replacement SURGEON: Willis Martin INTERVENTIONAL PHYSIATRIST: Alana Dubon Refer to Anesthesia Record ESTIMATED BLOOD LOSS: 200 PATHOLOGY: none sent TOURNIQUET TIME: 0 COMPLICATIONS: None Patient was transported to: PACU Patient's condition: stable Implants: 1. Depuy Attune Cementless Posterior Stabilized Femoral Component, Size 5 2. Depuy Attune Cementless Rotating Platform Tibial Component, Size 5 3. Depuy Attune 5x8 PS/RP Poly 4. Depuy Attune Patellar Component, Size 35 Indications: I have seen Alla in clinic for symptoms of knee arthritis, confirmed with radiographic findings. She has exhausted nonoperative methods and was having significant limitations in daily function and desired better function and less pain. I discussed the technical details of a knee replacement. I explained the risks of the procedure to include, but not limited to, bleeding, infection, pain, stiffness, fracture, damage to nerves and vessels, damage to muscles and tendons, loosening, need for repeat procedure, blood clot and cardiopulmonary demise. Despite these risks, Alla elected to proceed. Findings: There was significant signs of arthritis throughout the knee with notable medial deformity and large osteophytes throughout. Procedure Description: Alla was greeted in the preoperative holding area where the correct side was identified and marked. The consent was reviewed with the patient and signed. The history and physical was updated. All questions were answered. Preoperative medications were administered: Acetaminophen 1000mg, Celebrex 400mg, and Gabapentin 300mg. An adductor canal block was then administered by the anesthesia team in the PACU. Alla was taken back to the operating room. A spinal anesthestic was then administered. The patient was placed into the supine position on the operating room table. A nonsterile tourniquet was placed high onto the leg but only used for cementing. Posts were placed for positioning during the procedur e. All bony prominences were well padded. Prophylactic antibiotics in the form of Cefazolin were administered. 1g of Tranxemic Acid was given intravenously within 30 minutes of incision. The left leg was then prepped with Chloraprep and draped in a standard fashion with impervious stockinette. A second prep with Chloraprep was performed prior to application of Iodine impregnated skin protection. A timeout to confirm correct identity, side and site, procedure, allergies, anesthesia, and medical concerns was performed. With the knee in some flexion, a midline incision was made overlying the knee. Full thickness skin flaps were raised once the extensor mechanism was encountered. These were raised medially and laterally. Any bleeding was controlled with electrocautery. Once the extensor mechanism was fully exposed, a medial parapatellar arthrotomy was performed in a flexed position. All bleeding from the arthrotomy and the geniculate arteries was coagulated. A medial subperiosteal peel was performed with electrocautery to the midcoronal plane. Due to the significant varus deformity the entire medial tibial plateau was exposed. The fat pad was removed while keeping the patellar tendon protected. The anterior distal femur synovium was removed for later visualization. The ACL and PCL were resected and the anterior horn of the lateral meniscus was transected. The knee was then flexed with the patella everted. Large osteophytes from the tibia were removed. Large osteophytes from the femur were removed. Using a step drill, and based on preoperative templating, the femoral canal was entered. This was done with a step drill without any difficulty. The intramedullary distal femoral cut guide was inserted, set to a 4 degree valgus cut and 9mm cut thickness. The distal femoral cut guide was then held in position and pinned. With the soft tissues protected, the distal cut was performed. This was passed over a few times to ensure a planar cut. I then turned attention to the tibia. The extramedullary guide was placed onto the leg. The distal aspect was slid medial to adjust for position of center of ankle and stay in line with shaft of the tibia. Approximately 3-5 degrees of posterior slope was kept in the proximal cutting guide. The center of the guide was aligned with the PCL. The stylus was used to assess cut thickness. The medial side, most involved side, was set for a 2mm cut from the posteromedial surface. This was then held in position and pinned into place with 2 additional pins and a cross pin for stability. The medial and lateral collateral ligaments were protected and the cut was performed. With this completed, it was assessed and noted to be of appropriate dimensions. The guide was removed. A spacer block was inserted and the knee was brought into extension. The 8mm spacer block provided full extension, without hyperextension and with stability of both the medial and lateral collateral ligaments was assessed. The pins from the femur and the tibia were then removed. The distal femur was then sized. The anterior stylus was placed onto the lateral ridge of the anterior femur. This indicated a size 5 femur. The external rotation of the guide was adjusted to 3 degrees to match the epicondylar axis, perpendicular to [place]?s line. The 4-in-1 cutting guide was the placed. The posterior medial femur cut was evaluated and appeared of good thickness. The spacer block was inserted underneath the cutting guide and stability was confirmed in 90 degrees of flexion. An carol wing was used to confirm appropriate position of the anterior cut to avoid notching. This cutting guide was ensured to be flush on the cut surface and then pinned into place with headed pins. While protecting the soft tissues, quad tendon, and collateral ligaments, the anterior and posterior cuts were performed with a saw. The central two pins were removed and the posterior and anterior chamfers were cut next. The notch-cutting guide was placed. This was pinned to lateralize the femoral component as much as possible while keeping it flush on the cut surface. This was then pinned into position. A reciprocating saw was used to make the notch cut. A rasp smoothed the cut surfaces. The medial and lateral menisci were removed. A trial femoral component was then inserted, impacted down to the cut surfaces, and the lug holes were drilled. A provisional trial tibial component was placed and the knee was brought through range of motion. There was noted to be excellent extension and flexion. There was no significant instability. The patella was tracking without thumbs. A size 8mm polyethylene component provided the best range of motion and stability with less than 2mm gapping with medial and lateral stress and full extension without significant hyperextension. The tibial cut surface was fully exposed. The tibia was then sized as a 5. The tibia had been previously marked during trialing to correspond to the center of the tibial component to help with rotation. The trial was aligned to this phi, approximately rotated to the medial 1/3rd of the tibial tubercle. The trial was pinned into place. The tibia was prepared with a reamer and a keel punch and lug holes. The knee was then brought into extension and the patella was measured as 22mm. Using the patellar clamp and cut guide, this was resected to a flat surface with at least 13mm of thickness remaining. The size 35 patella fit the best. This was oriented and then clamped into position. The lugs were drilled. The trial components were removed. The final components were opened on the back table. The periosteal and capsular tissues, especially posteriorly, around the knee were then systematically injected with a periarticular cocktail consisting of 50cc 0.25% Marcaine, 30mg Ketorolac, 20cc of Exparal and 50cc of injectable saline. The knee was thoroughly irrigated with a pulse lavage and dried. Irrisept was also used to irrigate the tissues. On the back table, with the implants opened, the cement was mixed. One batch of high viscosity cement was prepared with vacuum assistance. After the cement was ready a small amount was placed on the cut surface of the patella and the patellar button was clamped into position and held. While the cement was hardening, the cementless knee components were placed. Starting with the tibial component, the tibia was subluxed anteriorly and the lug holes of the component were lined up. The tibia was then impacted with an impactor and mallet until the tibial component was in contact with the tibia. Then, the femoral component was inserted. The lug holes were aligned and the component was impacted into position. The trial poly was removed and the final polyethylene component was inserted. The knee was irrigated with Irrisept chlorhexadine solution. This was allowed to sit in the knee for 3 minutes. After the cement had finally cured, approximately 15min, the clamp was removed from the patella and the knee was taken through range of motion. The patella was tracking with a no-thumbs technique. The capsule was then reapproximated with a No. 1 Vicryl at multiple locations. The capsule was finally closed with a No. 2 Stratafix, barbed suture. Deep tissues were then reapproximated with 0 Vicryl and 2-0 Vicryl. The skin was closed with a running 3-0 Monocryl in a subcuticular fashion. This was reinforced with skin glue. A Mepilex silver dressing was applied along with a [id number]-[id number] YESSICA wrap. A CryoCuff was applied. Alla was transferred to the hospital stretcher without difficulty an suffering no apparent complication. She has a good prognosis. Physical therapy will start today and without restrictions, weight-bearing as tolerated. Aspirin 81mg BID will be used for DVT prophylaxis.
== END 2021-08-04 13:47 | disposition home or self-care (01) ==
PROVIDERS: PCP Nurse Practitioner Adult Health; Visit Provider Student in an Organized Health Care Education/Training Program
PROC: (CPT 27447; principal; 2021-08-04 07:30)
DX: M17.12 Unilateral primary osteoarthritis, left knee (principal); I10 Essential (primary) hypertension; E78.5 Hyperlipidemia, unspecified; I87.2 Venous insufficiency (chronic) (peripheral)
CPT/HCPCS: 27447; 76942; 97162; 97530; J0690; J1100; J1885; J2001; J2250; J2405; J3010

== ENCOUNTER 2021-08-16 10:31 | Outpatient (CLI) | payer BC, SELFPAY ==
--- NOTE | 2021-08-16 10:00 | DI.RAD_ITS ---
Exam(s) XR KNEE LT 1V XR STANDING ALIGNMENT EXAM: XR STANDING ALIGNMENT CLINICAL HISTORY: 1ST POST OP L TKA. TECHNIQUE: 2D digital imaging was performed. Standing AP views were performed from the pelvis throu gh the ankles. COMPARISON: CR XR STANDING ALIGNMENT from 05/17/2021 CR XR KNEE LT 2V AP,LAT from 07/28/2021 CR XR KNEE LT 1V from 08/16/2021 FINDINGS: BONES: No acute fracture is present. No bony destructive lesion is seen. The left femoral head projec ts 10 millimeters superior to the right. JOINTS: Knees: Bilateral total knee prostheses, left new since the previous exam. The ankle and hip joints are unremarkable. SOFT TISSUE: Soft tissue calcifications. IMPRESSION: Bilateral knee prostheses. Leg length discrepancy 10 millimeters.. DATA REPOSITORY: RADIATION DOSE DELIVERED:
== END 2021-08-16 10:32 | disposition home or self-care (01) ==
LOC: DIORS 10:32
PROVIDERS: PCP Nurse Practitioner Adult Health; Referring Provider Nurse Practitioner Adult Health; Visit Provider Physician Assistant
DX: Z96.652 Presence of left artificial knee joint (principal)
CPT/HCPCS: 73560; 77073

== ENCOUNTER → 2022-03-31 12:54 | Outpatient (BNVA) | payer MEDICARE, OTHER, SELFPAY | PROVIDERS: PCP Nurse Practitioner Adult Health; Referring Provider Nurse Practitioner Adult Health; Visit Provider Physical Therapy Assistant | DX: L98.9 Disorder of the skin and subcutaneous tissue, unspecified (principal) | CPT/HCPCS: 99212 ==

== ENCOUNTER 2022-04-18 09:05 | Outpatient (CLI) | payer MEDICARE, OTHER, SELFPAY ==
--- NOTE | 2022-04-18 08:00 | DI.RAD_ITS ---
Exam(s) XR KNEE LT 2V AP,LAT EXAM: XR KNEE LT 2V AP,LAT CLINICAL HISTORY: s/p left TKA. TECHNIQUE: 2D digital imaging was performed. COMPARISON: CR XR STANDING ALIGNMENT from 08/16/2021 CR XR KNEE LT 1V from 08/16/2021 FINDINGS: Two views Components left knee prosthesis remain stable. No fracture or loosening evident. IMPRESSION: DATA REPOSITORY: RADIATION DOSE DELIVERED:
--- NOTE | 2022-04-18 08:00 | DI.RAD_ITS ---
Exam(s) XR KNEE RT 2V AP,LAT EXAM: XR KNEE RT 2V AP,LAT CLINICAL HISTORY: s/p right TKA. TECHNIQUE: 2D digital imaging was performed. COMPARISON: CR XR KNEE LT 2V AP,LAT from 04/18/2022 FINDINGS: Two views Stable position alignment of components of the prosthesis. No fracture or loosening evident. IMPRESSION: DATA REPOSITORY: RADIATION DOSE DELIVERED:
== END 2022-04-18 09:06 | disposition home or self-care (01) ==
LOC: DIORS 09:06
PROVIDERS: PCP Nurse Practitioner Adult Health; Referring Provider Nurse Practitioner Adult Health; Visit Provider Physician Assistant
DX: Z96.652 Presence of left artificial knee joint (principal); Z96.651 Presence of right artificial knee joint
CPT/HCPCS: 99213; 73560

== ENCOUNTER → 2022-04-20 00:54 | Outpatient (CLI) | payer MEDICARE, OTHER, SELFPAY ==
--- NOTE | 2022-04-20 15:12 | DI.MAMMO_ITS ---
Exam(s) MAMMO SCREENING EXAM: MAMMO SCREENING CLINICAL HISTORY: screening, Z12.39 TECHNIQUE: Bilateral full field digital CC and MLO mammographic images were obtained with 3D tomosyn thesis and utilizing computer aided detection (CAD). COMPARISON: Available for comparison. FINDINGS: Masses/Architectural Distortion: There is a new round asymmetric density in the central right breast seen on the MLO view. Spot compression MLO and CC views are requested for further evaluation. Microcalcifications: No suspicious pleomorphic-type are seen. Skin Thickening/Nipple Retraction: None. IMPRESSION: 1. New round asymmetric density in the central right breast on the MLO view. 2. Additional views of the right breast are requested. Ultrasound may be indicated at that time. BI-RADS Category 0 - Assessment Incomplete: Need additional imaging evaluation Breast Density - Category B - Scattered areas of fibroglandular density Breast density category C or D implies that the patient has dense breast tissue. Dense breast tissue is very common and is not abnormal but dense breast tissue can make it harder to find cancer on a ma mmogram. Also, dense breast tissue may increase their breast cancer risk. This information about the result of the mammogram report was provided to the patient to raise their awareness. Use this report when you speak with the patient about their risks for breast cancer, which includes their family hist ory. At that time, you may recommend for more screening tests (Ultrasound or MRI) as they might be us eful based on their risk. A negative radiographic report should not delay biopsy if a dominant or clinically suspicious mass is present. Up to ten percent of cancers are not identified on mammography. A negative report may reinforce clinical impression. Adenosis and dense breasts may obscure an underlying neoplasm. False positive reports average 6 to 10%. Patient will receive a letter notifying them of these results.
== END ==
PROVIDERS: PCP Nurse Practitioner Adult Health; Visit Provider Nurse Practitioner Adult Health
DX: Z12.31 Encounter for screening mammogram for malignant neoplasm of breast (principal); R92.8 Other abnormal and inconclusive findings on diagnostic imaging of breast
CPT/HCPCS: 77063; 77067

== ENCOUNTER → 2022-04-26 01:50 | Outpatient (CLI) | payer MEDICARE, OTHER, SELFPAY ==
--- NOTE | 2022-04-26 14:20 | DI.MAMMO_ITS ---
Exam(s) MG MAMMO SCREEN CALL BACK UNI US BREAST RT COMPLETE EXAM: MG MAMMO SCREEN CALL BACK UNI and U/S breast RT complete CLINICAL HISTORY: F/U MAMMO, NEW ROUND ASYMMETRIC DENSITY CENTRAL RT BREAST, R92.8. TECHNIQUE: Craniocaudal and mediolateral oblique Full Field Digital Mammography views of the right b reast with Computer Aided Diagnosis followed by Tomosynthesis and right breast ultrasound. COMPARISON: Comparison is made with prior examinations. FINDINGS: Mammography/Tomosynthesis: Masses/Architectural Distortion: The area of concern is less well visualized on the current examinati on. No suspicious masses or areas of architectural distortion are present. Microcalcifictions: No suspicious pleomorphic-type are seen. Skin Thickening/Nipple Retraction: None. Complete right breast US: Echotexture: Normal appearance of the glandular tissue. Shadowing: There is a calcification at the 12 o'clock position corresponding to the macrocalcificatio n seen on the mammogram. Cyst: There is a cluster of cysts seen at the 9 o'clock position of the right breast 2 cm from the ni pple. Solid lesions: None seen. Ductal dilation: None. IMPRESSION: 1. No evidence of malignancy is noted. 2. Unless there is more urgent need, follow-up screening mammography is recommended, as per [place] [employer] guidelines. 3. The findings were discussed with the patient on the date of the examination. BI-RADS Category 2 - Benign Findings Breast Density - Category B - Scattered areas of fibroglandular density Breast density Category C or D implies that the patient has dense breast tissue. Dense breast tissue can make it harder to find cancer on a mammogram. Dense breast tissue is also associated with an incr eased risk of breast cancer. This information about the result of the mammogram report was provided to the patient to raise their awareness. Use this report when you speak with the patient about their risks for breast cancer, which includes their family history. At that time, you may recommend additional screening tests (Ultrasoun d or MRI) as these tests may add significant information. A negative radiographic report should not delay biopsy if a dominant or clinically suspicious mass is present. Up to ten percent of cancers are not identified on mammography. A negative report may reinforce clinical impression. Adenosis and dense breasts may obscure an underlying neoplasm. False positive reports average 6 to 10%. Patient will receive a letter notifying them of these results.
== END ==
PROVIDERS: PCP Nurse Practitioner Adult Health; Visit Provider Nurse Practitioner Adult Health
DX: Z12.31 Encounter for screening mammogram for malignant neoplasm of breast (principal); R92.8 Other abnormal and inconclusive findings on diagnostic imaging of breast
CPT/HCPCS: 76642; 77063; 77067

== ENCOUNTER → 2023-05-16 01:05 | Outpatient (CLI) | payer MEDICARE, SELFPAY ==
--- NOTE | 2023-05-16 07:00 | DI.MAMMO_ITS ---
Exam(s) MAMMO SCREENING EXAM: MAMMO SCREENING CLINICAL HISTORY: screening,Z12.39. TECHNIQUE: Bilateral full field digital CC and MLO mammographic images were obtained with 3D tomosyn thesis and utilizing computer aided detection (CAD). COMPARISON: Prior mammograms were reviewed. FINDINGS: No new findings in left breast. In the right breast on the MLO view there is an asymmetric uvedgcw-mdve-[id number] 6 x 4 mm possible nod ule located approximately 4 cm in from the nipple, previously present. There are no malignant-appearing microcalcification groups in this region or elsewhere in either [address] There is no significant architectural distortion nor skin thickening-retraction. IMPRESSION: 1. No radiographic evidence of malignancy in left breast. 2. Possible new right breast nodule seen on the MLO view. Spot compression MLO view and ultrasound r ecommended BI-RADS Category 0 - Assessment Incomplete: Need additional imaging evaluation Breast Density - Category B - Scattered areas of fibroglandular density Breast density Category C or D implies that the patient has dense breast tissue. Dense breast tissue can make it harder to find cancer on a mammogram. Dense breast tissue is also associated with an incr eased risk of breast cancer. This information about the result of the mammogram report was provided to the patient to raise their awareness. Use this report when you speak with the patient about their risks for breast cancer, which includes their family history. At that time, you may recommend additional screening tests (Ultrasoun d or MRI) as these tests may add significant information. A negative radiographic report should not delay biopsy if a dominant or clinically suspicious mass is present. Up to ten percent of cancers are not identified on mammography. A negative report may reinforce clinical impression. Adenosis and dense breasts may obscure an underlying neoplasm. False positive reports average 6 to 10%. Patient will receive a letter notifying them of these results.
== END ==
PROVIDERS: PCP Nurse Practitioner Adult Health; Visit Provider Nurse Practitioner Adult Health
DX: Z12.31 Encounter for screening mammogram for malignant neoplasm of breast (principal)
CPT/HCPCS: 77063; 77067

== ENCOUNTER → 2023-05-17 15:34 | Outpatient (CLI) | payer MEDICARE, SELFPAY ==
--- NOTE | 2023-05-17 | DI.MAMMO_ITS ---
Exam(s) MG MAMMO SCREEN CALL BACK UNI US BREAST RT COMPLETE EXAM: MG MAMMO SCREEN CALL BACK UNI and U/S breast RT complete CLINICAL HISTORY: F/U MAMMO, R92.8,? NEW RT BREAST NODULE. TECHNIQUE: Craniocaudal and mediolateral oblique Full Field Digital Mammography views of the right b reast with Computer Aided Diagnosis followed by Tomosynthesis and right breast ultrasound. COMPARISON: Comparison is made with prior examinations. FINDINGS: Mammography/Tomosynthesis: Masses/Architectural Distortion: There has been no change in size of the nodule in the retroareolar r egion of the right breast. No new nodules or areas of architectural distortion are seen. Microcalcifictions: No suspicious pleomorphic-type are seen. Skin Thickening/Nipple Retraction: None. Complete right breast US: Echotexture: Normal appearance of the glandular tissue. There is again seen a peripheral calcificati on in the 12 o'clock position of the right breast 1 cm from the nipple. This is unchanged. Shadowing: No suspicious foci. Cyst: There is again seen a cluster of cysts at the 8 o'clock position of the right breast 2 cm from the nipple. These are unchanged. Solid lesions: None seen. Ductal dilation: None. IMPRESSION: 1. No definite evidence of malignancy is noted. No change in appearance of the mammogram or ultrasoun d since 04/26/2022. 2. Unless there is more urgent need, follow-up screening mammography is recommended, as per [place] [employer] guidelines. 3. The findings were discussed with the patient on the date of the examination. BI-RADS Category 2 - Benign Findings Breast Density - Category B - Scattered areas of fibroglandular density Breast density Category C or D implies that the patient has dense breast tissue. Dense breast tissue can make it harder to find cancer on a mammogram. Dense breast tissue is also associated with an incr eased risk of breast cancer. This information about the result of the mammogram report was provided to the patient to raise their awareness. Use this report when you speak with the patient about their risks for breast cancer, which includes their family history. At that time, you may recommend additional screening tests (Ultrasoun d or MRI) as these tests may add significant information. A negative radiographic report should not delay biopsy if a dominant or clinically suspicious mass is present. Up to ten percent of cancers are not identified on mammography. A negative report may reinforce clinical impression. Adenosis and dense breasts may obscure an underlying neoplasm. False positive reports average 6 to 10%. Patient will receive a letter notifying them of these results.
== END ==
PROVIDERS: PCP Nurse Practitioner Adult Health; Visit Provider Nurse Practitioner Adult Health
DX: Z12.31 Encounter for screening mammogram for malignant neoplasm of breast (principal); R92.8 Other abnormal and inconclusive findings on diagnostic imaging of breast
CPT/HCPCS: 76642; 77063; 77067

== ENCOUNTER → 2023-08-10 16:28 | Outpatient (CLI) | payer MEDICARE, SELFPAY ==
--- NOTE | 2023-08-10 15:38 | DI.RAD_ITS ---
Exam(s) XR THORACIC SPINE COMPLETE EXAM: XR THORACIC SPINE COMPLETE CLINICAL HISTORY: L side pain; ?radicular; assess bones of thoracic, R10.9. TECHNIQUE: 2D digital imaging was performed. Three views. COMPARISON: No exams were available for comparison FINDINGS: BONES: There is no fracture or destructive lesion. Prominent flowing endplate osteophytes. ALIGNMENT: Mild degenerative scoliosis. DISKS: Endplate osteophytes. Mild narrowing of the anterior disc spaces in the upper to mid thoracic region. SOFT TISSUE: Visualized lungs are clear. IMPRESSION: Degenerative changes. DATA REPOSITORY: RADIATION DOSE DELIVERED:
== END ==
PROVIDERS: PCP Nurse Practitioner Adult Health; Visit Provider Nurse Practitioner Adult Health
DX: R10.9 Unspecified abdominal pain (principal); M47.814 Spondylosis without myelopathy or radiculopathy, thoracic region
CPT/HCPCS: 72072

== ENCOUNTER → 2023-08-11 01:45 | Outpatient (CLI) | payer MEDICARE, SELFPAY ==
--- NOTE | 2023-08-11 | DI.US_ITS ---
Exam(s) US BREAST LT COMPLETE MG MAMMO DIAGNOSTIC UNI EXAM: MG MAMMO DIAGNOSTIC UNI-LEFT AND COMPLETE LEFT BREAST ULTRASOUND CLINICAL HISTORY: lt breast pain, n64.4,? acute issue lt breast tissue. TECHNIQUE: Unilateral LEFT BREAST CC AND MLO mammographic images were obtained with 3D tomosynthesis technique and utilizing computer aided detection (CAD). COMPLETE LEFT BREAST ULTRASOUND was performed including all 4 quadrants as well as the left axilla. COMPARISON: Prior mammograms were reviewed, the most recent being 05/16/2023. Apparently complaining of pain in the region of her left breast. Denies lumps. FINDINGS: DIAGNOSTIC LEFT BREAST MAMMOGRAM: There are no new masses nor malignant-appearing microcalcification groups in the left breast. No significant architectural distortion or skin thickening-traction. COMPLETE LEFT BREAST ULTRASOUND: There is a solitary finding which is a benign 4 x 2 millimeter microcyst at 3 o'clock position. No s olid lesions in all 4 quadrants. Scanning of the left axilla is negative for adenopathy. IMPRESSION: 1. No radiographic evidence of malignancy in left breast. 2. Negative complete left breast ultrasound with the exception of a small benign microcysts at 3 o'cl ock position. The patient was informed of the findings and follow-up recommendations by myself prior to leaving the department today. BI-RADS Category 2 - Benign Findings Breast Density - Category B - Scattered areas of fibroglandular density Breast density Category C or D implies that the patient has dense breast tissue. Dense breast tissue can make it harder to find cancer on a mammogram. Dense breast tissue is also associated with an incr eased risk of breast cancer. This information about the result of the mammogram report was provided to the patient to raise their awareness. Use this report when you speak with the patient about their risks for breast cancer, which includes their family history. At that time, you may recommend additional screening tests (Ultrasoun d or MRI) as these tests may add significant information. A negative radiographic report should not delay biopsy if a dominant or clinically suspicious mass is present. Up to ten percent of cancers are not identified on mammography. A negative report may reinforce clinical impression. Adenosis and dense breasts may obscure an underlying neoplasm. False positive reports average 6 to 10%. Patient will receive a letter notifying them of these results.
== END ==
PROVIDERS: PCP Nurse Practitioner Adult Health; Visit Provider Nurse Practitioner Adult Health
DX: Z12.31 Encounter for screening mammogram for malignant neoplasm of breast (principal); N60.02 Solitary cyst of left breast; N64.4 Mastodynia
CPT/HCPCS: 76642; 77061; 77065; G0279

== ENCOUNTER 2023-08-25 01:40 | Outpatient (CLI) | payer MEDICARE, SELFPAY ==
[2023-08-25 08:15] LABS: Anion Gap 8.8 mmol/L (3-11); BUN 13 mg/dL (7-18); CO2 29.2 mmol/L (21.0-32.0); CREATININE 0.8 mg/dL (0.55-1.02); Calcium 9.2 mg/dL (8.5-10.1); Calculated LDL 102 mg/dL (<100); Chloride 104 mmol/L (98-107); Cholesterol 193 mg/dL (<200); Estimated GFR 81.21 (mL/min/1.73m2); Glucose 89 mg/dL (74-106); HDL Cholesterol 71 mg/dL (40-60); Potassium 4.5 mmol/L (3.5-5.1); Sodium 142 mmol/L (136-145); Triglyceride 101 mg/dL (<150)
== END 2023-08-25 01:41 | disposition home or self-care (01) ==
LOC: LBO 01:40
PROVIDERS: Absent Provider Nurse Practitioner Adult Health; PCP Nurse Practitioner Adult Health; Referring Provider Nurse Practitioner Adult Health; Visit Provider Nurse Practitioner Adult Health
DX: Z13.1 Encounter for screening for diabetes mellitus (principal); Z13.220 Encounter for screening for lipoid disorders
CPT/HCPCS: 36415; 80048; 80061

== ENCOUNTER 2023-09-14 13:34 | Emergency (ER) | payer MEDICARE, SELFPAY ==
[2023-09-14 13:38] VITALS: BP 147/105; PULSE 90; RESP 16; TEMP 37.2; O2SAT 97
--- NOTE | 2023-09-14 14:00 | DI.RAD_ITS ---
Exam(s) XR WRIST LT COMPLETE EXAM: XR WRIST LT COMPLETE CLINICAL HISTORY: fall, r/o fx, pain at dist rad/ulna. TECHNIQUE: 2D digital imaging was performed of the left wrist. Three images were obtained. PA, obl ique and lateral views were obtained. COMPARISON: No exams were available for comparison FINDINGS: BONES: There is an acute transverse fracture through the distal radial metaphysis. The fracture is i mpacted. On the oblique view, it appears to extend into the radiocarpal joint. No bony destructive lesion is seen. JOINTS: The carpal bones are normally aligned. There are degenerative changes seen at the 1st carpome tacarpal joint. SOFT TISSUE: There is soft tissue swelling of the wrist. IMPRESSION: Acute impacted intra-articular fracture of the distal left radius. DATA REPOSITORY: RADIATION DOSE DELIVERED:
--- NOTE | 2023-09-14 14:36 | ED.GENADUL_ITS ---
Discharge Plan Disposition Patient Disposition: Home Discharge Details Clinical Impression: Distal radius fracture, left Primary Care Provider: Elle Peters ED Provider: Lonnie Knapp Home Meds and New Rx's Prescriptions: No Action lisinopril 5 mg tablet 5 mg PO DAILY Qty: 90 3RF Rx Instructions: Blood pressure goal <140/90 naproxen 500 mg tablet 500 mg PO BID PRN (Reason: pain) Qty: 40 0RF Rx Instructions: Start by taking with food 2x/d x4 days, then PRN pain. multivitamin [Daily Multi-Vitamin] 1 EACH tablet 1 ea PO DAILY Discharge Instructions Instructions: Wrist Fracture in Adults (ED) Additional Instructions: At this time you show evidence of a mild fracture at the end of your wrist at your distal radius. Please keep the splint on at all times. It may take 1 to 2 months to heal. Please take Tylenol as needed for pain. You can take your Celebrex as well as needed for pain. If you notice any worsening of your symptoms, or any new symptoms such as vomiting, diarrhea, fever, chills, shortness of breath, chest pain, numbness, weakness, or fainting , please return immediately to the emergency department for reevaluation. Please follow up with your primary care provider as soon as possible for reassessment and reevaluation. As always, it was a pleasure participating in your medical care today. Referrals: Elle Peters, DEVELOPMENT TRAINER [Primary Care Provider] - Discharge Data Discharge Date/Time-TO BE ENTERED AT DEPARTURE: 09/14/23 15:30 Medical Decision Making This is a pleasant 68-year-old female with a past medical history of hypertension, high cholesterol, who presents today for pain in her left nondominant wrist. Patient states that at 11 AM she fell backwards, and landed on her right hand. She states that it was twisted behind her. She did not hit her head or any other components. She had pain that developed in her right wrist after this. It has been mild. She has been icing it regularly since then. She denies any other complaints. Pain is made worse with movement. Improved by rest and ice. She did take a Celebrex prior to arrival. She denies any numbness tingling or weakness otherwise. Pain is located in her distal wrist/radius but nowhere else. Exam demonstrates well-appearing female, minimal tenderness at the distal radius. No other tenderness elsewhere. No large deformity. Concern for potential fracture. Will get an x-ray to rule this out, monitor closely and reassess. 5 PM There is evidence of an acute impacted intra-articular fracture of the distal left radius. Pain is notably minimal. Discussed risk and benefits of splint versus casting, and with no displacement, notable stable fracture, and with the patient utilizing it all day long without any significant difficulty we will transition to a universal wrist splint, and recommend continued use for the next 4-8 weeks with close outpatient PCP follow-up. Discussed red flags for which to return. Patient neurovascularly intact. I have extensively reviewed the treatment plan and discharge instructions with the patient. I have addressed all patient concerns at this time. The patient was made aware of what symptoms to monitor for that would warrant a return to the emergency department. Discussed the plan with the patient, they demonstrate verbal understanding and agreement with our assessment and plan at this time. The documentation in this chart was dictated using [employer] dictation software. Please excuse any dictation errors. FINDINGS: BONES: There is an acute transverse fracture through the distal radial metaphysis. The fracture is impacted. On the oblique view, it appears to extend into the radiocarpal joint. No bony destructive lesion is seen. JOINTS: The carpal bones are normally aligned. There are degenerative changes seen at the 1st carpometacarpal joint. SOFT TISSUE: There is soft tissue swelling of the wrist. IMPRESSION: Acute impacted intra-articular fracture of the distal left radius. HPI General Date/Time Provider Initiated Documentation: 09/14/23 13:54 . HPI Narrative: This is a pleasant 68-year-old female with a past medical history of hypertension, high cholesterol, who presents today for pain in her left nondominant wrist. Patient states that at 11 AM she fell backwards, and landed on her right hand. She states that it was twisted behind her. She did not hit her head or any other components. She had pain that developed in her right wrist after this. It has been mild. She has been icing it regularly since then. She denies any other complaints. Pain is made worse with movement. Improved by rest and ice. She did take a Celebrex prior to arrival. She denies any numbness tingling or weakness otherwise. Pain is located in her distal wrist/radius but nowhere else. Related Data Home Medications Medication Instructions Recorded Confirmed multivitamin (Daily Multi-Vitamin 1 ea PO DAILY 03/19/18 09/04/23 tablet) naproxen 500 mg tablet 500 mg PO BID PRN pain #40 tabs 08/04/23 09/04/23 lisinopril 5 mg tablet 5 mg PO DAILY #90 tabs 09/04/23 09/04/23 Previous Rx's Medication Instructions Recorded naproxen 500 mg tablet 500 mg PO BID PRN pain #40 tabs 08/04/23 lisinopril 5 mg tablet 5 mg PO DAILY #90 tabs 09/04/23 Allergies Allergy/AdvReac Type Severity Reaction Status Date / Time Tetracyclines Allergy Intermediate Skin Rash Verified 09/04/23 15:08 General Stated Complaint: Orthopedic LEONARD: 4 Review of Systems All systems reviewed & are unremarkable except as noted in HPI and below PFSH All Active Problems Distal radius fracture, left (Acute) Scoliosis of thoracic spine (Acute ~2022) Venous insufficiency of both lower extremities (Chronic 04/20/15) Manifested by edema, treated with compression stockings Stopped wearing compression stockings due to sizing issues Essential hypertension (Chronic 2014) TLCs controlled in the past. HCTZ 12.5mg at one time At-home BP monitoring -03/2015 revealed BPs running in the 110-120s/70-80s whereas in the office it runs in the 130s systolic. 2022-Started Lisinopril Hyperlipidemia (Chronic 02/21/17) Pt denies this being a diagnosis 02/2019 labwork: 10-year ASCVD risk ~2.9% --> no statin indicated at this time Screening for colon cancer (Acute) Medical History Skin lesion Elevated BP without diagnosis of hypertension Actinic keratitis Degenerative joint disease of right knee Severe Body mass index (BMI) greater than 30 in adult Allergic rhinitis (03/02/15) Constipation Had a colonoscopy for this Postmenopausal Depo-Provera contraceptive status Long-term use in the past. Bone density scan normal. Obesity, Class III, BMI 40-49.9 (morbid obesity) Surgical History History of total left knee replacement (08/04/21) DOS 08/04/21 History of total right knee replacement (05/04/21) DOS: 05/04/21 Tooth extraction [place] [facility] [place] [place]. Debbie Lemon Family History Mother Dementia at 91 y/o Father Emphysema of lung at 61 y/o Social History Smoking/Tobacco Use Status: Never Second Hand Exposure: No Smoking risk assessment performed?: Yes Alcohol Intake: never Drug use: Never Substance use type: does not use Adopted: No Caregiver/Support person: No Foster care: No Household members: spouse Housing: house Number of Children: 0 number of grandchildren: 0 Communication Needs: Corrective Lenses Education Level: high school Do you need help understanding health information?: Never current occupation: Housekeeping Pets and animals: Yes Pets and animals: cat(s) Sexually active: Yes Do you think of yourself as: straight/heterosexual Current gender identity: female What is your relationship status?: How often do you talk on the phone with friends or family?: three or more times per week How often do you get together with friends or relatives?: three or more times per week How often do you attend yazdanism or confucianism services?: 4 or more times per year Do you belong to any clubs or organized social groups?: yes Panel score (0-1 are the most socially isolated patients): 4 What type of physical activity do you participate in: bicycling, regular exercise and swimming Duration: 45-60 minutes/day Frequency: 5-6 times per week Aishwarya/Caodaism: Nondenominational Special aishwarya needs: No Seatbelt use: always Helmet use: Yes Helmet use: sometimes Drive intox or ride w/intox drive away driver: No Water heater temp set <120 deg: Yes Do you feel safe at home: Yes Do you feel safe in your relationship?: Yes Exam Narrative Exam Narrative: 1.Const: Well-nourished, Well-developed, appearing stated age 2.Eyes: PERRL, no conjunctival injection, and symmetrical lids. 3.ENT: Atraumatic external nose and ears. Moist MM. Neck: Symmetric, trachea midline, No thyromegaly. 4.CVS: +S1/S2, No murmurs or gallops. Peripheral pulses 2+ and equal in all extremities. Brisk capillary refill in all extremities. 5.RESP: Unlabored respiratory effort. Clear to auscultation bilaterally. No wheezes rales or rhonchi 6.GI: Soft, Nontender/Nondistended, No hepatosplenomegaly. No guarding or rebound. 7.MSK: Normocephalic, Extremities w/o deformity, No cyanosis or clubbing, Normal movement of all extremities. Mild pain at the distal radius on the right wrist. No pain at the ulna. No anatomical snuffbox tenderness. Patient demonstrates good flexion and extension, good link cutter strength. Normal sensation throughout all fingers. Brisk capillary refill. Normal radial pulse. 8.Skin: Warm, Dry. No rashes or lesions. 9.Neuro: auto specialty services manager II-XII grossly intact. Sensation grossly intact, no focal neurologic deficits. 10.Psych: (AAO) x3. Appropriate mood and affect Course Vital Signs Vital signs: Vital Signs Temperature 37.2 C 09/14/23 13:38 Pulse 90 09/14/23 13:38 Respiratory Rate 16 09/14/23 13:38 Blood Pressure 147/105 H 09/14/23 13:38 Pulse Oximetry 97 09/14/23 13:38 Temperature 37.2 C 09/14/23 13:38 Temperature Source Skin 09/14/23 13:38 Pulse 90 09/14/23 13:38 Respiratory Rate 16 09/14/23 13:38 Respiratory Effort Normal 09/14/23 14:12 Blood Pressure 147/105 H 09/14/23 13:38 Blood Pressure Position Sitting 09/14/23 13:38 Pulse Oximetry 97 09/14/23 13:38 Oxygen Delivery Method Room Air 09/14/23 13:38 Oxygen Flow Rate 0 09/14/23 13:38 Pain Level 8 09/14/23 13:38 Comment took celebrex after fall 09/14/23 13:38
[2023-09-14 15:21] VITALS: BP 160/90
== END 2023-09-14 15:30 | disposition home or self-care (01) ==
PROVIDERS: Emergency Provider Student in an Organized Health Care Education/Training Program; PCP Nurse Practitioner Adult Health
DX: S52.572A Other intraarticular fracture of lower end of left radius, initial encounter for closed fracture (principal); W19.XXXA Unspecified fall, initial encounter; I10 Essential (primary) hypertension; E78.00 Pure hypercholesterolemia, unspecified; Z79.899 Other long term (current) drug therapy
CPT/HCPCS: 29125; 99283; 73110

== ENCOUNTER → 2023-10-27 08:40 | Outpatient (CLI) | payer MEDICARE, SELFPAY ==
--- NOTE | 2023-10-27 14:19 | DI.RAD_ITS ---
Exam(s) XR WRIST LT COMPLETE EXAM: XR WRIST LT COMPLETE CLINICAL HISTORY: nondominant hand; interval update--?healing approp S52.502A FX LEFT RADIUS. TECHNIQUE: 2D digital imaging was performed. COMPARISON: CR XR WRIST LT COMPLETE from 09/14/2023 FINDINGS: 3 views Again noted is the previously described transverse fracture in distal radius. No further displacemen t. The fracture site appears somewhat sclerotic related to healing. Tiny osteophytic density off th e ulnar styloid again noted which is possibly avulsion. There is no significant ulnar variance. The re is no fracture of the scaphoid and scapholunate distance is normal. Degenerative changes are agai n noted in the 1st carpometacarpal joint. IMPRESSION: Healing distal radius fracture site. No further displacement. DATA REPOSITORY: RADIATION DOSE DELIVERED:
== END ==
PROVIDERS: PCP Nurse Practitioner Adult Health; Visit Provider Nurse Practitioner Adult Health
DX: S52.512D Displaced fracture of left radial styloid process, subsequent encounter for closed fracture with routine healing (principal); X58.XXXD Exposure to other specified factors, subsequent encounter
CPT/HCPCS: 73110

== ENCOUNTER 2024-03-11 06:28 | Outpatient (CLI) | payer MEDICARE, SELFPAY ==
[2024-03-11 14:33] LABS: BUN 16 mg/dL (7-18); Calcium 9.6 mg/dL (8.5-10.1); Chloride 104 mmol/L (98-107); Estimated GFR 62.13 (mL/min/1.73m2); Glucose 102 mg/dL (74-106); Potassium 4.3 mmol/L (3.5-5.1); Sodium 141 mmol/L (136-145)
== END 2024-03-11 06:29 | disposition home or self-care (01) ==
LOC: LBO 06:30
PROVIDERS: PCP Nurse Practitioner Adult Health; Visit Provider Nurse Practitioner Adult Health
DX: Z13.1 Encounter for screening for diabetes mellitus (principal)
CPT/HCPCS: 36415; 80048

== ENCOUNTER 2024-05-20 02:13 | Outpatient (CLI) | payer MEDICARE, SELFPAY | END 2024-05-20 02:33 | PROVIDERS: PCP Nurse Practitioner Adult Health; Visit Provider Nurse Practitioner Adult Health | DX: Z12.31 Encounter for screening mammogram for malignant neoplasm of breast (principal); R92.8 Other abnormal and inconclusive findings on diagnostic imaging of breast | CPT/HCPCS: 77063; 77067 ==

== ENCOUNTER 2025-01-10 13:01 | Emergency (ER) | payer MEDICARE, SELFPAY ==
[2025-01-10 13:19] VITALS: BP 166/77; PULSE 101; RESP 16; TEMP 36.6; O2SAT 98
--- NOTE | 2025-01-10 14:00 | DI.RAD_ITS ---
Exam(s) XR CHEST 2V PA LATERAL EXAM: XR CHEST 2V PA LATERAL CLINICAL HISTORY: cough TECHNIQUE: 2D digital imaging was performed. Two views. COMPARISON: CR XR THORACIC SPINE COMPLETE from 08/10/2023 FINDINGS: HEART: Normal size. Aorta: Not dilated. PULMONARY VASCULATURE: Normal. MEDIASTINUM: Large hiatal hernia with air-fluid level. LUNGS: Clear. PLEURAL SPACE: No pleural effusion or pneumothorax. BONE:Degenerative changes in the spine with prominent endplate osteophytes. SOFT TISSUES: Unremarkable. IMPRESSION: No acute abnormality. DATA REPOSITORY: RADIATION DOSE DELIVERED:
[2025-01-10 14:01] VITALS: RESP 18
[2025-01-10 14:04] VITALS: BP 168/70; PULSE 98; RESP 20; TEMP 38; O2SAT 97
--- NOTE | 2025-01-10 14:04 | W.ED.GENAD ---
Discharge Plan Disposition Patient Disposition: Home Condition: Stable Discharge Details Clinical Impression: URI (upper respiratory infection) Primary Care Provider: Elle Peters ED Provider: Manjinder Ashley Home Meds and New Rx's Prescriptions: New prednisone 20 mg tablet 60 mg PO DAILY 4 Days Qty: 12 0RF amoxicillin-pot clavulanate 875-125 mg tablet 1 tab PO BID Qty: 20 0RF Continued multivitamin [Daily Multi-Vitamin] 1 EACH tablet 1 ea PO DAILY lisinopril 5 mg tablet 5 mg PO DAILY Qty: 90 3RF Rx Instructions: Blood pressure goal <140/90 Discharge Instructions Additional Instructions: Your x-ray did not show any concerning findings at this time. Your blood work showed that you are anemic, you can try taking a daily iron supplement such as ferrous sulfate until you follow-up with your primary care provider. If your symptoms do not improve I would recommend talking with your primary care provider about possibly changing your lisinopril as this sometimes can cause issues with coughing. You can use the inhaler every 4 hours as needed. If you feel any severe shortness of breath return to the emergency department for reevaluation. HPI General Mode of arrival: ambulatory. Date/Time Provider Initiated Documentation: 01/10/25 13:51. Limitations to Documentation: no limitations. Information obtained by: patient. History of Present Illness 69 year old F presents to the emergency department with the chief complaint of cough, described as moderate, Patient started experiencing this week(s) (2) and it has been constant. No relieving factors improve symptom(s), Patient notes cough; denies chest pain, fever/chills and shortness of breath. Related Data Home Medications ?Medication ?Instructions ?Recorded ?Confirmed multivitamin (Daily Multi-Vitamin 1 ea PO DAILY 03/19/18 01/10/25 tablet) lisinopril 5 mg tablet 5 mg PO DAILY #90 tabs 09/04/24 01/10/25 amoxicillin 875 mg-potassium 1 tab PO BID #20 tabs 01/10/25 clavulanate 125 mg tablet prednisone 20 mg tablet 60 mg (3 x 20 mg) PO DAILY 4 days 01/10/25 #12 tabs Previous Rx's ?Medication ?Instructions ?Recorded lisinopril 5 mg tablet 5 mg PO DAILY #90 tabs 09/04/24 amoxicillin 875 mg-potassium 1 tab PO BID #20 tabs 01/10/25 clavulanate 125 mg tablet prednisone 20 mg tablet 60 mg (3 x 20 mg) PO DAILY 4 days 01/10/25 #12 tabs Allergies Allergy/AdvReac Type Severity Reaction Status Date / Time Tetracyclines Allergy Intermediate Skin Rash Verified 01/10/25 13:23 General Stated Complaint: GenMedical LEONARD: 3 Review of Systems All systems reviewed & are unremarkable except as noted in HPI and below Constitutional Constitutional: Denies chills and Denies fever(s) Cardiovascular Cardiovascular: Denies chest pain and Denies dyspnea Respiratory Respiratory: Reports cough and Denies dyspnea Gastrointestinal Gastrointestinal: Denies abdominal pain, Denies nausea and Denies vomiting Psychiatric Psychiatric: Denies depression Exam Const General: no acute distress Orientation: alert HENMT Head: normal to inspection Ears: external ears normal General nose exam: external nose normal Mouth: moist mucous membranes Eyes General: appearance normal, both eyes and all related structures Neck Neck: normal visual inspection Resp Effort & Inspection: normal respiratory effort and able to speak in complete sentences Auscultation: wheezes Cardio Jugular venous pressure: no JVD Rate: regular rate Skin General skin exam: no rashes or lesions noted Neuro General: patient alert and patient oriented x3 Extrem General: normal to inspection Psych Mental Status: mental status grossly normal Course Vital Signs Vital signs: Vital Signs Temperature 36.6 C 01/10/25 13:19 Pulse 101 H 01/10/25 13:19 Respiratory Rate 16 01/10/25 13:19 Blood Pressure 166/77 H 01/10/25 13:19 Pulse Oximetry 98 01/10/25 13:19 Temperature 36.6 C 01/10/25 13:19 Temperature Source Oral 01/10/25 13:19 Pulse 101 H 01/10/25 13:19 Respiratory Rate 18 01/10/25 14:01 Respiratory Effort Normal, Non-Labored 01/10/25 14:01 Respiratory Depth Normal 01/10/25 14:01 Blood Pressure 166/77 H 01/10/25 13:19 Pulse Oximetry 98 01/10/25 13:19 Medical Decision Making 69-year-old female with a history of hypertension who comes in with 2 weeks of persistent cough. She also notes some sinus pressure and nasal congestion. Denies any fevers, chest pain, difficulty breathing, recent travel, vomiting. She is well-appearing on exam. She does have mild apical wheezing bilaterally otherwise clear lung sounds, she has no JVD or leg swelling or calf tenderness. I suspect URI versus sinusitis, will check CBC and CMP along with Fluvid and obtain a chest x-ray. Will treat with albuterol inhaler and prednisone and reassess. Given her well appearance I doubt sepsis at this time. Labs show a microcytic anemia, she denies any change in her bowel habits and has had 2 normal colonoscopies she states. X-ray unremarkable. Given she had 2 weeks of symptoms of some sinus congestion I am going to put her on a dose of Augmentin and continue prednisone for few more days. I did discuss if her symptoms do not improve that she should discuss with her PCP about potentially changing her lisinopril. I am also can add on iron studies for her microcytic anemia and she will follow-up with her PCP. Return precautions given Differential Diagnosis Differential Diagnosis: URI, pneumonia, sinusitis Lab Data Lab results reviewed: Yes I reviewed the patient's lab results. Quality:SDOH Health Related Social Needs: No Data to Display PFSH All Active Problems (Updated 01/10/25 @ 15:36 by Manjinder Ashley MD) URI (upper respiratory infection) (Acute) Distal radius fracture, left (Acute ~08/2023) Scoliosis of thoracic spine (Acute ~2022) Venous insufficiency of both lower extremities (Chronic 04/20/15) Manifested by edema, treated with compression stockings Stopped wearing compression stockings due to sizing issues Essential hypertension (Chronic 2014) TLCs controlled in the past. HCTZ 12.5mg at one time At-home BP monitoring -03/2015 revealed BPs running in the 110-120s/70-80s whereas in the office it runs in the 130s systolic. 2022-Started Lisinopril Hyperlipidemia (Chronic 02/21/17) Pt denies this being a diagnosis 02/2019 labwork: 10-year ASCVD risk ~2.9% --> no statin indicated at this time Screening for colon cancer (Acute) Medical History Skin lesion Elevated BP without diagnosis of hypertension Actinic keratitis Degenerative joint disease of right knee Severe Body mass index (BMI) greater than 30 in adult Allergic rhinitis (03/02/15) Constipation Had a colonoscopy for this Postmenopausal Depo-Provera contraceptive status Long-term use in the past. Bone density scan normal. Obesity, Class III, BMI 40-49.9 (morbid obesity) Surgical History History of total left knee replacement (08/04/21) DOS 08/04/21 History of total right knee replacement (05/04/21) DOS: 05/04/21 Tooth extraction [place] [facility] [place] [place] Dr. Debbie Lemon Family History Mother Dementia at 91 y/o Father Emphysema of lung at 61 y/o Social History Smoking/Tobacco Use Status: Never Second Hand Exposure: No Smoking risk assessment performed?: Yes Alcohol Intake: never Drug use: Never Substance use type: does not use Adopted: No Caregiver/Support person: No Foster care: No Household members: spouse Housing: house Number of Children: 0 number of grandchildren: 0 Communication Needs: Corrective Lenses Education Level: high school Do you need help understanding health information?: Never current occupation: Housekeeping Pets and animals: Yes Pets and animals: cat(s) Sexually active: Yes Do you think of yourself as: straight/heterosexual Current gender identity: female What is your relationship status?: How often do you talk on the phone with friends or family?: three or more times per week How often do you get together with friends or relatives?: three or more times per week How often do you attend tenriism or scientology services?: 4 or more times per year Do you belong to any clubs or organized social groups?: yes Panel score (0-1 are the most socially isolated patients): 4 What type of physical activity do you participate in: bicycling, regular exercise and swimming Duration: 45-60 minutes/day Frequency: 5-6 times per week Aishwarya/Samaritan: Hoahaoism Special aishwarya needs: No Seatbelt use: always Helmet use: Yes Helmet use: sometimes Drive intox or ride w/intox cement mixer driver: No Water heater temp set <120 deg: Yes Do you feel safe at home: Yes Do you feel safe in your relationship?: Yes
[2025-01-10 14:23] LABS: Abs Immature Grans 0.03 10^3/uL (0.0-0.06); Absolute Basophil Count 0.06 10^3/uL (0.0-0.2); Absolute Eosinophil Count 0.08 10^3/uL (0.0-0.7); Absolute Lymphocyte Count 0.79 10^3/uL (1.2-3.4); Absolute Monocyte Count 0.65 10^3/uL (0.1-0.8); Absolute Neutrophil Count 5.64 10^3/uL (1.2-6.7); Basophils % 0.8 %; Eosinophils % 1.1 %; HCT 26.2 % (36.0-46.0); HGB 7.4 g/dL (11.2-15.7); Immature Grans % 0.4 %; Lymphocytes % 10.9 %; MCH 21.4 pg (27.0-33.0); MCHC 28.2 % (32.0-36.0); MCV 76 fL (80-95); MPV 8.6 fL (8.0-11.0); Neutrophils % 77.8 %; Platelet Count 474 10^3/uL (130-400); RBC 3.45 10^6/uL (3.93-5.22); RDW 16.9 % (11.7-14.6); RDW-SD 45.6 fL; WBC 7.25 10^3/uL (4.4-10.8)
[2025-01-10] MEDS: predniSONE 20 MG TAB 60 MG PO (14:23)
[2025-01-10] MEDS: Albuterol HFA 8 GM 60 PUFF INH IH (14:23)
[2025-01-10 14:49] LABS: COVID-19 PCR Negative (Negative); Influenza A PCR Negative (Negative); Influenza B PCR Negative (Negative); RSV PCR Negative (Negative)
[2025-01-10 14:51] LABS: Source Nasopharynx
[2025-01-10 14:52] VITALS: BP 171/64; PULSE 91; RESP 18; O2SAT 97
[2025-01-10 14:58] LABS: ALT 28 U/L (14-59); AST 19 U/L (15-37); Albumin 4.1 g/dL (3.4-5.0); Alkaline Phosphatase 98 U/L (46-116); Anion Gap 8.7 mmol/L (3-11); BUN 22 mg/dL (7-18); Bilirubin, Total 0.3 mg/dL (0.2-1.0); CO2 27.3 mmol/L (21.0-32.0); CREATININE 1.2 mg/dL (0.55-1.02); Calcium 9.5 mg/dL (8.5-10.1); Chloride 105 mmol/L (98-107); Estimated GFR 49.61 (mL/min/1.73m2); Glucose 104 mg/dL (74-106); Potassium 4.6 mmol/L (3.5-5.1); Sodium 141 mmol/L (136-145); Total Protein 7.5 g/dL (6.4-8.2)
[2025-01-10 15:48] LABS: Reticulocyte 2.2 % (0.5-2.4)
[2025-01-10 15:52] VITALS: BP 145/63; PULSE 90; RESP 18; O2SAT 98
[2025-01-10 15:53] LABS: Iron 19 ug/dL (50-170); Total Iron Binding Capacity 588 ug/dL (250-450); Transferrin Sat 3 % (15-50)
[2025-01-10 16:07] LABS: Ferritin 3 ng/mL (8-252)
== END 2025-01-10 15:54 | disposition home or self-care (01) ==
PROVIDERS: Emergency Provider Emergency Medicine; PCP Nurse Practitioner Adult Health
DX: J06.9 Acute upper respiratory infection, unspecified (principal); D64.9 Anemia, unspecified; I10 Essential (primary) hypertension; E78.5 Hyperlipidemia, unspecified
CPT/HCPCS: 36415; 80053; 87637; 99284; 71046; 82728; 83540; 83550; 85025; 85045; J7512

== ENCOUNTER 2025-01-30 00:55 | Outpatient (CLI) | payer MEDICARE, SELFPAY ==
--- NOTE | 2025-01-30 08:45 | DI.CT_ITS ---
Exam(s) CT ABDOMEN PELVIS W EXAM: CT ABDOMEN PELVIS W CLINICAL HISTORY: ? mass,ANEMIA,D64.9. TECHNIQUE: Imaging Protocol: Axial computed tomography images with coronal and sagittal reformatted images were created and reviewed CONTRAST MATERIAL: Intravenous: Omnipaque 350 Contrast volume:100 ml Oral: yes COMPARISON: No exams were available for comparison FINDINGS: ABDOMEN and PELVIS: Lung Bases: Large hiatal hernia containing the entire stomach. Mild adjacent atelectasis. Liver: Normal density. No suspicious mass. Gallbladder and biliary tract: No radiodense calculus. No wall thickening or pericholecystic fluid. No biliary dilation. Pancreas: Normal density. No abnormal calcifications or inflammatory process. No evidence of mass. Spleen: Normal. Kidneys: Normal size, contour and axis. No radiodense stones. No obstructive uropathy. No suspicious masses seen. Circumaortic 1 left renal vein. Adrenal glands: No masses seen. Vasculature: Abdominal aorta non-dilated. No significant atherosclerotic changes. Soft tissues: Arm tiny fat containing midline hernia above the level of the umbilicus. Bladder: Empty, unable to be evaluated. Bowel: Diverticulosis. No evidence of diverticulitis. No gross evidence of a colonic mass. No obst ruction. No bowel wall thickening. Appendix normal. Peritoneal cavity: No ascites. No focal collection. No mesenteric inflammatory response. No free air . Bones: Severe degenerative changes. The bones appear osteoporotic. Reproductive organs: Unremarkable. Lymph nodes: No pathologically enlarged lymph nodes. IMPRESSION:: No evidence of mass or other acute abnormality. Large hiatal hernia. Diverticulosis, greatest of the sigmoid. RADIATION DOSE DELIVERED: Total DLP DATA REPOSITORY: All CT scans at this facility are submitted to the National Radiology Data Registry (NRDR) Dose Index Registry (DIR) with the [employer] (A[employer]). RADIATION OPTIMIZATION: All CT scans at this facility use at least one of these dose optimization te chniques: automated exposure control; mA and/or kV adjustment per patient size (includes targeted exa ms where dose is matched to clinical indication); or iterative reconstruction.
[2025-01-30] MEDS: Barium Sulfate 2% W/V-Berry Smoothie 450 ML BTL PO ×2 (12:31→12:32)
[2025-01-30] MEDS: Normal Saline - Diluent 50 ML VIAL IJ (15:22)
[2025-01-30] MEDS: Omnipaque 350 MG/ML 100 ML BTL IJ (15:23)
== END 2025-01-30 01:15 ==
LOC: DI 00:56
PROVIDERS: PCP Nurse Practitioner Adult Health; Visit Provider Nurse Practitioner Adult Health
DX: D64.9 Anemia, unspecified (principal); K57.30 Diverticulosis of large intestine without perforation or abscess without bleeding; K44.9 Diaphragmatic hernia without obstruction or gangrene
CPT/HCPCS: 74177; J3490

== ENCOUNTER → 2025-02-06 13:31 | Outpatient (BNVA) | payer MEDICARE, SELFPAY | PROVIDERS: PCP Nurse Practitioner Adult Health; Referring Provider Nurse Practitioner Adult Health; Visit Provider Student in an Organized Health Care Education/Training Program | DX: K44.9 Diaphragmatic hernia without obstruction or gangrene (principal) | CPT/HCPCS: 99215 ==

== ENCOUNTER 2025-02-11 06:03 | Day surgery (SDC) | payer MEDICARE, SELFPAY ==
[2025-02-11 06:29] VITALS: BP 135/82; PULSE 93; RESP 16; TEMP 36.2; O2SAT 98
[2025-02-11] MEDS: Lactated Ringers 1,000 ML 80 ML IV (07:00)
--- NOTE | 2025-02-11 07:08 | ANES.PREOP_ITS ---
General Info Date of Service Date Performed: 02/11/25 Height: 5 ft 1 in Weight: 91.4 kg Body Mass Index (BMI): 38.0 Surgical Procedure: Operation Date: 02/11/25 07:35 Proposed Procedure Side Surgeon p Colonoscopy/Gastroscopy Master De Leon MD Meds Allergies and Home Medications Allergies Allergy/AdvReac Type Severity Reaction Status Date / Time Tetracyclines Allergy Intermediate Skin Rash Verified 02/11/25 06:32 Home Medication ?Medication ?Instructions ?Recorded multivitamin (Daily Multi-Vitamin 1 ea PO DAILY 03/19/18 tablet) lisinopril 5 mg tablet 5 mg PO DAILY #90 tabs 09/04/24 ferrous sulfate 325 mg (65 mg 325 mg PO DAILY 01/20/25 iron) tablet bisacodyl 5 mg tablet,delayed 5 mg PO ONCE colonscopy bowel prep 02/06/25 release (Dulcolax (bisacodyl)) #4 tabs polyethylene glycol 3350 17 238 g PO ONCE colonoscopy prep 02/06/25 gram/dose oral powder #238 grams Current Visit Medications: Current Medications Generic Name Dose Route Start Last Admin Trade Name Freq PRN Reason Stop Dose Admin Ringer's Solution 1,000 mls @ 80 mls/hr 02/11/25 06:00 IV 02/11/25 23:59 INFUSION SILVINO IV Miscellaneous Supplies 1 each 02/11/25 06:00 Iv Access IV 02/11/25 23:59 DIRECTED SILVINO Sodium Chloride 0 ml 02/11/25 06:00 Normal Saline Flush 10 Ml Syr IV 02/11/25 23:59 PRN PRN Sodium Chloride 0 ml 02/11/25 06:00 Normal Saline 10 Ml Vial IJ 02/11/25 23:59 DIRECTED PRN Sterile Water 0 ml 02/11/25 06:00 Water,Injection,Sterile 10 Ml Vial IJ 02/11/25 23:59 DIRECTED PRN PFSH Active Problems Active Problems: Problem Status Onset Code Anemia Chronic D64.9 Large hiatal hernia Acute K44.9 Scoliosis of thoracic spine Acute ~2022 M41.9 Screening for colon cancer Acute Z12.11 Venous insufficiency of both lower extremities Chronic 04/20/15 I87.2 Hyperlipidemia Chronic 02/21/17 E78.5 Essential hypertension Chronic 2014 I10 Medical History Medical History Distal radius fracture, left (~08/2023) Skin lesion Elevated BP without diagnosis of hypertension Actinic keratitis Degenerative joint disease of right knee Severe Body mass index (BMI) greater than 30 in adult Allergic rhinitis (03/02/15) Constipation Had a colonoscopy for this Postmenopausal Depo-Provera contraceptive status Long-term use in the past. Bone density scan normal. Obesity, Class III, BMI 40-49.9 (morbid obesity) Surgical History Surgical History History of total left knee replacement (08/04/21) DOS 08/04/21 (B) History of total right knee replacement (05/04/21) DOS: 05/04/21 Tooth extraction [place] [facility] [place] (05/[place] Dr. Debbie Lemon Tobacco Smoking/Tobacco Use Status: Never Passive smoking exposure: No Second hand exposure: No Alcohol Alcohol Intake: never Substance Use Substance use: Never Substance use type: does not use Vital Signs and Lab Results Vital Signs Most Recent Vital Signs in EMR: Most Recent Vital Signs Temp Pulse Resp BP Pulse Ox 36.2 C L 93 H 16 135/82 98 02/11/25 06:29 02/11/25 06:29 02/11/25 06:29 02/11/25 06:29 02/11/25 06:29 Lab Results Blood Type / Crossmatch: No Data to Display Complete Blood Count: No Data to Display Complete Metabolic Panel: No Data to Display Liver Function Panel: No Data to Display Coagulation Panel: No Data to Display Cardiac Panel: No Data to Display Arterial Blood Gas: No Data to Display Venous Blood Gas: No Data to Display Pancreas Panel: No Data to Display Thyroid Panel: No Data to Display Infectious Disease: No Data to Display Blood Cultures: No Data to Display Toxicology Panel: No Data to Display Anesthesia Assessment and Plan Anesthesia History Personal History: No History of Anesthesia Complications Family History: No Family History of Anesthesia Complications Exercise Tolerance Exercise Tolerance: Metabolic Equivalents>4 Pertinent Negatives Pertinent Negatives: No Symptoms of GERD, No Major Cardiovascular Symptoms or Complaints, No Major Pulmonary Symptoms or Complaints and No History of CVA/TIA Cardiac & Pulmonary Exam Cardiac Exam: Normal S1/S2 Heart Sounds Pulmonary Exam: Clear Bilateral Breath Sounds Implantable Cardiac Device Does patient have a Pacemaker or an ICD?: No Airway Exam Known Difficult Airway: No Mallampati Class: 2 Mouth Opening: Normal (> 3cm) Thyromental Distance: Greater than 3 cm Neck Range of Motion: Full ROM Neck Circumference: Normal Teeth Condition: Removable Dentures/Plates Upper ASA Classification ASA Score: ASA 3 Emergency Case?: No NPO Status NPO Status: NPO Clears >2 hours, Solids >8 hours Anesthesia Plan Resuscitation Status: Full Code Anesthesia Technique: General Anesthesia Airway Planned: Natural Airway Monitors Used: Standard Monitors
[2025-02-11 07:27] VITALS: BMI 38.0
--- NOTE | 2025-02-11 07:52 | BOWEL_PTH ---
PATIENT: Alla Inman LOC: [facility] U#:[id number] AGE/SX: 69/F ROOM: RE02/11/[address]: Master De Leon : 1955 BED: DIS: 02/11/2025 SPEC #: [id number] RECD: 02/11/25 12:29 STATUS: SUSAN RERadha #: [id number] JEFERSON: 02/11/25 07:[address]: Master De Leon DEPT: Surgical Specimen RECD BY: Ladi Rios ENTERED: 02/11/25 12:30 SP TYPE: Bowel OTHR DR: Elle Peters APRN Tissues: 1 - STOMACH BIOPSY 2 - BIOPSY BOWEL 3 - BIOPSY BOWEL Procedures: GROSS AND MICRO LEVEL 4 Comments: [id number]
[2025-02-11 08:15] VITALS: BP 91/71; PULSE 78; RESP 16; TEMP 36.3; O2SAT 95
[2025-02-11 08:45] VITALS: BP 124/81; PULSE 72; RESP 18; TEMP 36.3; O2SAT 98
--- NOTE | 2025-02-11 09:04 | PDOC.DSDIS_ITS ---
Date of service: 02/11/25 Discharge Plan Disposition Patient Disposition: Home Condition: Good Discharge Details Attending Provider: Master De Leon Primary Care Provider: Elle Peters Home Meds and New Rx's Prescriptions: No Action polyethylene glycol 3350 17 gram/dose powder 238 g PO ONCE Qty: 238 0RF Rx Instructions: take per colonoscopy instructions bisacodyl [Dulcolax (bisacodyl)] 5 mg tablet,delayed release (DR/EC) 5 mg PO ONCE Qty: 4 0RF Rx Instructions: take per colonoscopy instructions ferrous sulfate 325 mg (65 mg iron) tablet 325 mg PO DAILY multivitamin [Daily Multi-Vitamin] 1 EACH tablet 1 ea PO DAILY lisinopril 5 mg tablet 5 mg PO DAILY Qty: 90 3RF Rx Instructions: Blood pressure goal <140/90 Discharge Instructions Additional Instructions: FINDINGS: Your large paraesophageal hernia is the cause of your anemia. There wa 1 may look inside of it. s even some blood seen in your stomach as we discussed, you need to lose 30 or 40 pounds and then consider having this hernia repaired. No concerning findings on your colonoscopy. We did find a small polyp and r emoved it. It is nothing to worry about and it does get tested. Because of finding a polyp you should have another colonoscopy in 7 to 10 years under most circumstances. We will call you in a week or so until you. You do have extensive diverticulosis which is extremely common, benign and nothing needs to be done about it. Stand Alone Forms: Anesthesia Discharge Inst., DSU Post EGD Instructions, Colonoscopy Post Instructions, Lisandro Luo (DSU) Activity:: Activity as Tolerated Diet:: As Tolerated
--- NOTE | 2025-02-11 09:46 | ENDO_ITS ---
Date of service: 02/11/25 Time of Service: 09:46 Endoscopy Report PROCEDURE DESCRIPTION: PROCEDURES PERFORMED: 1. EGD with biopsies PREOPERATIVE DIAGNOSIS: Anemia, large hiatal hernia POSTOPERATIVE DIAGNOSIS: Giant type III paraesophageal hernia SURGEON: Mj De Leon MD INDICATION FOR PROCEDURE: 69-year-old woman with anemia of unknown etiology or significance. FINDINGS: D2/D3 = normal D1/bulb = normal - no ulcers or inflammation Pylorus = normal Antrum = normal appearance, no ulcers, cold forceps biopsies were taken to rule out H. pylori routinely Body = normal appearance - only partly below diaphragm with the other half of the body above the diaphragm Fundus = there is pooled blood, mild irritation and some punctate areas of bleeding within the fundus that is entirely in the chest. No distinct ulceration. The fundus is completely paraesophageal and on the medial aspect relative to the heart. Cardia = grossly normal - no inflammation or ulceration Hiatus = wide?mouth defect within the stomach in the chest. Distal esophagus = no visible inflammation, no esophagitis, no Bang's, no obvious stricture. I did not take any biopsies here. Mid esophagus = normal Proximal esophagus/hypopharynx/vocal cords = normal SURVEILLANCE-INTERVAL/FOLLOW-UP: Patient needs to get BMI under 35, and ideally under 30 for durable long?term repair. Surgical repair is recommended in the long run for this size and type of hernia Specimens: Yes EBL: Minimal COMPLICATIONS: None Procedure in detail: The patient gave written consent and was in agreement with the indications, the potential risks as well as the benefits of the procedure. The patient was taken to the endoscopy suite and laid on their left side. Anesthesia was given which was tolerated well. We performed a timeout and we are in agreement I started the procedure. A well-lubricated endoscope was gently and carefully advanced down the esophagus, into the stomach the scope was and through the pylorus into the duodenum. The scope was then slowly withdrawn with the above-noted find ings/interventions. The patient tolerated the procedure well and was then turned for colonoscopy (see separate procedure note).
--- NOTE | 2025-02-11 10:31 | W.ANESPOSTOP ---
Postoperative Evaluation Date, Time and Location Date Performed: 02/11/25 Time Performed: 10:31 Patient Location: Day Surgery Unit Vital Signs Most Recent Imported Vital Signs: Most Recent Vital Signs Temp Pulse Resp BP Pulse Ox 36.3 C L 72 18 124/81 98 02/11/25 08:45 02/11/25 08:45 02/11/25 08:45 02/11/25 08:45 02/11/25 08:45 Pain Score Most Recent Pain Score: Most Recent Pain Score Pain Level 0 02/11/25 08:45 Assessment Mental Status: Awake (Alert & Oriented to Patient Baseline) Airway and Respiratory Function: Patent airway with normal (patient baseline) respiratory exam Cardiovascular Function: Hemodynamically Stable Hydration Status: Adequately Hydrated Nausea & Vomiting: No Nausea or Vomiting Pain: Pt. Denies Any Pain Peripheral Nerve Block: Patient did not receive a nerve block Postoperative Comments:: As discussed earlier with Alla, I do believe she should be intubated for any General Anesthetic in the near future (unless she elects a correction of her large hiatal hernia).
--- NOTE | 2025-02-11 13:55 | W.COLOREPORT ---
Date of service: 02/11/25 Time of Service: 08:00 Colonoscopy Report Procedure Description: PROCEDURES PERFORMED: 1. Colonoscopy with hot snare polypectomy PREOPERATIVE DIAGNOSIS: Anemia POSTOPERATIVE DIAGNOSIS: Severe sigmoid diverticulosis, rectal polyp SURGEON: Mj De Leon MD INDICATION FOR PROCEDURE: the patient is a 69-year-old woman with new onset anemia. No bowel habit changes or concerns. Greater than 10 years since last colonoscopy. No family history of colon cancer. FINDINGS: Normal terminal ileum. Biopsies taken routinely. In the sigmoid colon is severe diverticular disease. No stricture, no fibrosis, no inflammation. In the mid?rectum a 3-5 mm sessile adenomatous?appearing polyp was removed with hot snare technique. No significant or obvious hemorrhoid disease. SURVEILLANCE interval/FOLLOW-UP: Nothing found to explain anemia(felt to be related to large paraesophageal hernia seen on upper endoscopy). pending path results of the polyp, probably 7-10 years. SPECIMENS: Yes EBL: Minimal COMPLICATIONS: None QUALITY of prep: Excellent Procedure in detail: The patient gave written consent and was in agreement with the indications, the potential risks as well as the benefits of the procedure. She was turned from upper endoscopy (see separate procedure note) and I started the colonoscopy portion of the procedure. Digital rectal and visual examination was performed and grossly within normal limits. A well-lubricated flexible colonoscope was then introduced and passed without any notable difficulty all the way to the cecum identified by the ileocecal valve and the appendiceal orifice. The terminal ileum was intubated and it looked normal. The scope was then slowly withdrawn with the above-noted findings. The patient tolerated the procedure well and was taken to the PACU in hemodynamically stable condition.
== END 2025-02-11 09:28 | disposition home or self-care (01) ==
PROVIDERS: PCP Nurse Practitioner Adult Health; Visit Provider Student in an Organized Health Care Education/Training Program
PROC: (CPT 43239; principal; 2025-02-11 07:30)
DX: K44.9 Diaphragmatic hernia without obstruction or gangrene (principal); D64.9 Anemia, unspecified; K57.32 Diverticulitis of large intestine without perforation or abscess without bleeding; K63.5 Polyp of colon
CPT/HCPCS: 43239; 45385; 88305; J2371; J2704

== ENCOUNTER 2025-02-13 02:49 | Outpatient (RCR) | payer MEDICARE, SELFPAY ==
[2025-01-27] MEDS: IRON SUCROSE COMPLEX 200 MG in Normal Saline 100 ML 440 MG IVPB (13:50)
[2025-01-27] MEDS: Normal Saline Flush 5 ML SYR IVP (13:51)
[2025-02-03] MEDS: Normal Saline Flush 10 ML SYR IVP (12:56)
[2025-02-03] MEDS: IRON SUCROSE COMPLEX 200 MG in Normal Saline 100 ML 440 MG IVPB (12:56)
[2025-02-13] MEDS: IRON SUCROSE COMPLEX 200 MG in Normal Saline 100 ML 440 MG IVPB (13:15)
[2025-02-13] MEDS: Normal Saline Flush 10 ML SYR IVP (13:19)
== END 2025-02-22 23:59 | disposition home or self-care (01) ==
LOC: INF 02:49
PROVIDERS: PCP Nurse Practitioner Adult Health; Visit Provider Nurse Practitioner Adult Health
DX: D64.9 Anemia, unspecified (principal)
CPT/HCPCS: 96365; J1756

== ENCOUNTER 2025-02-18 02:37 | Outpatient (CLI) | payer MEDICARE, SELFPAY ==
[2025-02-18 08:37] LABS: HGB 10.5 g/dL (11.2-15.7); MCV 83 fL (80-95); MPV 8.9 fL (8.0-11.0); Platelet Count 375 10^3/uL (130-400); RDW-SD 78.3 fL; Reticulocyte 1.4 % (0.5-2.4); WBC 5.14 10^3/uL (4.4-10.8)
[2025-02-18 08:46] LABS: Anion Gap 9.8 mmol/L (3-11); BUN 14 mg/dL (7-18); CO2 27.2 mmol/L (21.0-32.0); Calcium 9.5 mg/dL (8.5-10.1); Chloride 103 mmol/L (98-107); Estimated GFR 61.75 (mL/min/1.73m2); Glucose 92 mg/dL (74-106); Potassium 4.2 mmol/L (3.5-5.1); Sodium 140 mmol/L (136-145)
[2025-02-18 09:01] LABS: Iron 74 ug/dL (50-170); Total Iron Binding Capacity 383 ug/dL (250-450); Transferrin Sat 19 % (15-50)
[2025-02-18 09:08] LABS: RDW 27.7 % (11.7-14.6)
[2025-02-19 09:52] LABS: Transferrin 295 mg/dL (201-352)
[2025-02-19 15:46] LABS: Ferritin 148 ng/mL (8-252)
== END 2025-02-18 02:38 | disposition home or self-care (01) ==
LOC: LBO 02:37
PROVIDERS: PCP Nurse Practitioner Adult Health; Visit Provider Nurse Practitioner Adult Health
DX: D64.9 Anemia, unspecified (principal); R79.89 Other specified abnormal findings of blood chemistry
CPT/HCPCS: 36415; 80048; 85027; 82728; 83540; 83550; 84466; 85045

== ENCOUNTER 2025-03-24 10:03 | Outpatient (REF) | payer MEDICARE, SELFPAY ==
--- NOTE | 2025-03-24 08:30 | SKI_PTH ---
PATIENT: Alla Inman LOC: [facility] U#:[id number] AGE/SX: 69/F ROOM: RE03/24/[address]: Libertad Barragan DO : 1955 BED: DIS: 03/24/2025 SPEC #: [id number] RECD: 03/24/25 13:03 STATUS: SUSAN REQ #: [id number] JEFERSON: 03/24/25 08:[address]: Libertad Barragan DEPT: Surgical Specimen RECD BY: Ladi Rios ENTERED: 03/24/25 13:04 SP TYPE: SAVANNAH RIZZO DR: Elle Peters APRN Tissues: 1 - SKIN BIOPSY(SHAVE/PUNCH) 2 - SKIN BIOPSY(SHAVE/PUNCH) Procedures: GROSS AND MICRO LEVEL 3 SKIN LEVEL 4 Comments: [id number]
== END 2025-03-24 10:04 | disposition home or self-care (01) ==
LOC: LBN 10:03
PROVIDERS: PCP Nurse Practitioner Adult Health; Visit Provider Obstetrics & Gynecology
DX: L85.1 Acquired keratosis [keratoderma] palmaris et plantaris (principal)
CPT/HCPCS: 88304; 88305

== ENCOUNTER 2025-06-02 09:48 | Outpatient (CLI) | payer MEDICARE, SELFPAY ==
[2025-06-02 07:42] LABS: HCT 44.3 % (36.0-46.0); HGB 14.6 g/dL (11.2-15.7); MCH 30.4 pg (27.0-33.0); MCHC 33.0 % (32.0-36.0); MCV 92 fL (80-95); MPV 8.8 fL (8.0-11.0); Platelet Count 319 10^3/uL (130-400); RBC 4.80 10^6/uL (3.93-5.22); RDW 14.6 % (11.7-14.6); RDW-SD 48.5 fL; WBC 5.24 10^3/uL (4.4-10.8)
[2025-06-02 08:27] LABS: Ferritin 80 ng/mL (8-252)
== END 2025-06-02 09:49 | disposition home or self-care (01) ==
LOC: LBO 09:48
PROVIDERS: Absent Provider Nurse Practitioner Adult Health; PCP Nurse Practitioner Adult Health; Referring Provider Nurse Practitioner Adult Health; Visit Provider Nurse Practitioner Adult Health
DX: D50.9 Iron deficiency anemia, unspecified (principal)
CPT/HCPCS: 36415; 85027; 82728

== ENCOUNTER → 2025-08-22 01:47 | Outpatient (CLI) | payer MEDICARE, SELFPAY ==
--- NOTE | 2025-08-22 06:30 | DI.MAMMO_ITS ---
Exam(s) MAMMO SCREENING EXAM: MAMMO SCREENING CLINICAL HISTORY: screening, Z12.39 TECHNIQUE: Mammograms were interpreted according to the usual protocol including computer analysis with CAD system, tomosynthesis and C-view imaging. COMPARISON: 2015 through 2023 FINDINGS: The breasts are composed of scattered fibroglandular densities, Breast Density category B. No suspicious masses or suspicious microcalcifications are seen. No skin thickening or abnormal axillary lymph nodes are seen. There has been no significant change from prior exams. IMPRESSION: BI-RADS Category 1, Negative mammogram Yearly screening mammography is recommended. Breast Density - Category B - There are scattered areas of fibroglandular density. Breast density Category C or D implies that the patient has dense breast tissue. Dense breast tissue can make it harder to find cancer on a mammogram. Dense breast tissue is also associated with an increased risk of breast cancer. This information about the result of the mammogram report was provided to the patient to raise their awareness. Use this report when you speak with the patient about their risks for breast cancer, which includes their family history. At that time, you may recommend additional screening tests (Ultrasound or MRI) as these tests may add significant information. A negative radiographic report should not delay biopsy if a dominant or clinically suspicious mass is present. Up to ten percent of cancers are not identified on mammography. A negative report may reinforce clinical impression. Adenosis and dense breasts may obscure an underlying neoplasm. False positive reports average 6 to 10%. Patient will receive a letter notifying them of these results.
== END ==
LOC: DI 01:47
PROVIDERS: PCP Nurse Practitioner Adult Health; Visit Provider Nurse Practitioner Adult Health
DX: Z12.31 Encounter for screening mammogram for malignant neoplasm of breast (principal); R92.323 Mammographic fibroglandular density, bilateral breasts
CPT/HCPCS: 77063; 77067